=== PATIENT | female | born 1980 | race Caucasian/White ===

== ENCOUNTER 2017-08-28 03:40 | Inpatient (IN) | payer OTHER ==
[2017-08-28] VITALS (8 sets, daily range): BP systolic 117–134; BP diastolic 61–69; PULSE 46–54; RESP 18; TEMP 98.1; Ht 162.6 cm; Wt 75.2 kg
[~2017-08-28] VITALS: Ht 162.6 cm; Wt 75.2 kg
[~2017-08-28 03:40] MED LIST: ASPI-664 PO; ATOR20TA65 PO; IBUP400T22 PO; ISOS5TAB2 NGT; NITR0.4T32 SL
[2017-08-28 04:13] LABS: URINE BLOOD (Dip) POC Trace-intact (NEGATIVE)
[2017-08-28] MEDS ORDERED: LIDOCAINE/MYLANTA 40 ML BTL PO STA (04:17)
[2017-08-28] MEDS ORDERED: KETOROLAC 15 MG INJ IV STA (04:17)
[2017-08-28] MEDS ORDERED: BELLADONNA/PHENOBARBITAL TAB PO STA (04:17)
[2017-08-28] MEDS ORDERED: ONDANSETRON 4 MG INJ IV STA (04:17)
--- NOTE | 2017-08-28 04:23 | ERD ---
ER Documentation Chief Complaint Chief Complaint chest pain on and off x 3 days HPI 37-year-old woman triaged with chest pain as well as epigastric pain, she states that 2 pains are separate. Her chest pain is substernal and radiates down the left upper extremity, she states the last time this happened in January 2017 she suffered a myocardial infarction, patient also uses nitroglycerin intermittently throughout the week for chest pain and ran out 3 days ago. Her abdominal pain is nonexertional nonradiating. She denies shortness of breath, no fevers or chills, some nausea but no vomiting or diarrhea, no blood per rectum or melena, no weight loss. ROS All systems reviewed and are negative except as per history of present illness. Allergies Allergies: Coded Allergies: No Known Allergy (Unverified , 08/28/17) PMhx/Soc Hypertension, history of GA FmHx Family History: No diabetes Physical Exam Vitals Vital Signs Date Time Temp Pulse Resp B/P Pulse Ox O2 Delivery O2 Flow Rate FiO2 08/28/17 04:15 98.3 60 18 117/73 100 Room Air 08/28/17 03:56 98.3 54 20 153/77 100 Physical Exam GENERAL: Well-developed, well-nourished, well-hydrated, afebrile HEENT: Moist mucous membranes, pink conjunctiva, no cervical spine tenderness or step-off deformities, no goiter, no jaundice or icterus, extraocular movements intact without pain. No submandibular induration, and no pharyngeal erythema NEURO: Alert and oriented 3, cranial nerves II through XII intact bilaterally, pupils equal round reactive to light, no focal deficits or facial asymmetry, sensation intact distally Strength 5/5 in upper and lower extremities bilaterally CARDIAC: Bradycardic and regular, no murmurs rubs or gallops LUNGS: Clear bilaterally no wheezing crackles or stridor ABDOMEN: Soft nontender, no guarding, no rigidity, no rebound, no psoas sign no obturator sign. Normoactive bowel sounds SKIN: Warm and dry to touch, no abrasions, contusions, or hematomas, no lacerations, no ecchymosis, no target lesions, and without ulcers EXTREMITIES: No clubbing cyanosis or edema, calves are bilaterally symmetrical, no Homans sign, no popliteal cord sign. Distal pulses equal and bilateral PSYCH: Normal affect without agitation or irritability Result Diagram: 08/28/17 0420 08/28/17 0420 Results 24 hrs Laboratory Tests Test 08/28/17 04:10 08/28/17 04:11 08/28/17 04:20 Urine Color YELLOW Urine Clarity CLOUDY Urine pH 7.0 Urine Specific [place] 1.025 Urine Ketones TRACEmg/dL Urine Nitrite NEGATIVEmg/dL Urine Bilirubin NEGATIVEmg/dL Urine Urobilinogen NEGATIVEmg/dL Urine Leukocyte Esterase NEGATIVELeu/ul Urine Microscopic RBC 30/HPF Urine Microscopic WBC 11/HPF Urine Squamous Epithelial Cells MODERATE/HPF Urine Mucus MODERATE/HPF Urine Yeast (Budding) MODERATE/HPF Urine Hemoglobin NEGATIVEmg/dL Urine Glucose NEGATIVEmg/dL Urine Total Protein 1+mg/dl Bedside Urine pH (LAB) 8.5 Bedside Urine Protein (LAB) 1+ Bedside Urine Glucose (UA) Negative Bedside Urine Ketones (LAB) Trace Bedside Urine Blood Trace-intact Bedside Urine Nitrite (LAB) Negative Bedside Urine Leukocyte Esterase (L Negative White Blood Count 14.110^3/ul Red Blood Count 4.5310^6/ul Hemoglobin 11.5g/dl Hematocrit 35.5% Mean Corpuscular Volume 78.4fl Mean Corpuscular Hemoglobin 25.4pg Mean Corpuscular Hemoglobin Concent 32.4g/dl Red Cell Distribution Width 13.7% Platelet Count 6210^3/UL Mean Platelet Volume 8.9fl Neutrophils % 82.4% Lymphocytes % 11.3% Monocytes % 5.4% Eosinophils % 0.1% Basophils % 0.2% Nucleated Red Blood Cells % 0.0/100WBC Neutrophils # 11.710^3/ul Lymphocytes # 1.610^3/ul Monocytes # 0.810^3/ul Eosinophils # 0.010^3/ul Basophils # 0.010^3/ul Nucleated Red Blood Cells # 0.010^3/ul Prothrombin Time 12.1Sec Prothrombin Time Ratio 0.9 INR International Normalized Ratio 0.90 Sodium Level 143mmol/L Potassium Level 4.3mmol/L Chloride Level 99mmol/L Carbon Dioxide Level 35mmol/L Anion Gap 13 Blood Urea Nitrogen 12mg/dl Creatinine 0.53mg/dl Glucose Level 129mg/dl Calcium Level 9.4mg/dl Total Bilirubin 0.4mg/dl Direct Bilirubin 0.00mg/dl Indirect Bilirubin 0.4mg/dl Aspartate Amino Transf (AST/SGOT) 22IU/L Alanine Aminotransferase (ALT/SGPT) 38IU/L Alkaline Phosphatase 91IU/L Troponin I 0.022ng/ml Total Protein 7.4g/dl Albumin 3.9g/dl Globulin 3.50g/dl Albumin/Globulin Ratio 1.11 Lipase 42U/L Current Medications Medications (Trade) Dose Ordered Sig/Hipolito Route PRN Reason Start Time Stop Time Status Last Admin Dose Admin Ondansetron HCl (Zofran Inj) 4 mg ONCE STAT IV 08/28/17 04:17 08/28/17 04:19 DC 08/28/17 04:31 Miscellaneous Medication (Gi Cocktail (2)) 40 ml ONCE STAT PO 08/28/17 04:17 08/28/17 04:19 DC 08/28/17 04:32 Belladonna/ Phenobarbital () 2 tab ONCE STAT PO 08/28/17 04:17 08/28/17 04:19 DC 08/28/17 04:31 Ketorolac Tromethamine (Toradol) 15 mg ONCE STAT IV 08/28/17 04:17 08/28/17 04:19 DC 08/28/17 04:31 Lorazepam (Ativan) 0.5 mg ONCE ONCE IV 08/28/17 05:30 08/28/17 05:31 DC Procedures/[facility] IV line was established patient was placed on transaction manager rhythm strip revealed a sinus bradycardia at about 50 bpm with upright P and T waves. Patient was afebrile EKG performed, read by me revealed a sinus bradycardia 50 bpm, normal axis, narrow QRS complex, no concerning ST elevations or depressions noted. I administered 1 L LR IV 1, Toradol 15 mg IV, GI cocktail 30 cc p.o., and Zofran 4 mg IV with good response. One AP view of the chest performed, read by me reveals no acute infiltrates, normal mediastinum, sharp costophrenic and cardiac borders, no air under the diaphragm. Otherwise unremarkable chest x-ray. Urine analysis shows yeast and I administered fluconazole 200 mg p.o. 1 as well as lorazepam 0.5 mg p.o. for anxiety. For cardioprotective measures I administered aspirin 324 mg p.o. CBC reveals a leukocytosis, electrolytes are unremarkable, troponin is negative at 0.02. Liver function tests normal, lipase normal. Patient has a history of hypertension and CAD with recent GA. She is suffering chest pain similar to previous episode which resulted in myocardial infarction so she will be admitted to telemetry setting for continued medical management cardiology consultation. Departure Diagnosis: Primary Impression: Chest pain Chest pain type: unspecified Qualified Code: R07.9 - Chest pain, unspecified type Additional Impression: Yeast cystitis Condition: MANUEL Aguayo MD Aug 28, 2017 04:23
[2017-08-28 04:58] LABS: ABNORMAL IP MESSAGE 1; BASOPHILS % 0.2 % (0.0-2.0); EOSINOPHILS % 0.1 % (0.0-7.0); HEMATOCRIT 35.5 % (37.0-47.0); HEMOGLOBIN 11.5 g/dl (12.0-16.0); LYMPHOCYTES # 1.6 10^3/ul (0.8-2.9); LYMPHOCYTES % 11.3 % (15.0-51.0); MEAN CORPUSCULAR HEMOGLOBIN 25.4 pg (29.0-33.0); MEAN CORPUSCULAR HGB CONC 32.4 g/dl (32.0-37.0); MEAN CORPUSCULAR VOLUME 78.4 fl (82.0-101.0); MEAN PLATELET VOLUME 8.9 fl (7.4-10.4); MONOCYTE # 0.8 10^3/ul (0.3-0.9); MONOCYTES % 5.4 % (0.0-11.0); NEUTROPHIL # 11.7 10^3/ul (1.6-7.5); NEUTROPHILS % 82.4 % (39.0-77.0); PLATELET COUNT 62 10^3/UL (140-415); RED BLOOD COUNT 4.53 10^6/ul (4.20-5.40); RED CELL DISTRIBUTION WIDTH 13.7 % (11.5-14.5); WHITE BLOOD COUNT 14.1 10^3/ul (4.8-10.8)
[2017-08-28 05:00] LABS: POSITIVE DIFF @See below
[2017-08-28 05:11] LABS: ADD UMIC YES; UR ASCORBIC ACID 40 mg/dL (NEGATIVE); UR BILIRUBIN (Dip) NEGATIVE (NEGATIVE); UR BLOOD (Dip) NEGATIVE (NEGATIVE); UR BUDDING YEAST MODERATE /HPF (NONE SEEN); UR CLARITY CLOUDY (CLEAR); UR COLOR YELLOW (YELLOW); UR GLUCOSE (Dip) NEGATIVE (NEGATIVE); UR KETONES (Dip) TRACE mg/dL (NEGATIVE); UR LEUKOCYTE ESTERASE (Dip) NEGATIVE Leu/ul (NEGATIVE); UR MUCUS MODERATE /HPF (NONE SEEN); UR NITRITE (Dip) NEGATIVE (NEGATIVE); UR RBC 30 /HPF (0-5); UR SPECIFIC GRAVITY (Dip) 1.025 (1.003-1.030); UR SQUAMOUS EPITHELIAL CELL MODERATE /HPF (FEW); UR TOTAL PROTEIN (Dip) 1+ mg/dl (NEGATIVE); UR UROBILINOGEN (Dip) NEGATIVE (NEGATIVE)
[2017-08-28 05:15] LABS: ALBUMIN 3.9 g/dl (3.3-4.9); ALBUMIN/GLOBULIN RATIO 1.11; BILIRUBIN,INDIRECT 0.4 mg/dl (0-1.1); BILIRUBIN,TOTAL 0.4 mg/dl (0.2-1.3); CALCIUM 9.4 mg/dl (8.4-10.2); CREATININE 0.53 mg/dl (0.44-1.00); INR 0.9; POTASSIUM 4.3 mmol/L (3.5-5.1); PROTIME 12.1 Sec (12.2-14.2); PT RATIO 0.9; TOTAL PROTEIN 7.4 g/dl (6.1-8.1)
[2017-08-28] MEDS ORDERED: LORAZEPAM 2 MG INJ IV ONE (05:30)
[2017-08-28] MEDS ORDERED: HYDROmorphONE 1 MG/ML SYG IV STA (05:52)
--- NOTE | 2017-08-28 05:52 | RADRPT ---
PROCEDURE: XR Chest. CLINICAL INDICATION: Chest pain. TECHNIQUE: AP Portable chest. COMPARISON: No pertinent prior examinations were submitted for comparison. FINDINGS: The cardiomediastinal silhouette is normal. The aorta is normal. No focal consolidation, pleural eff usion or pneumothorax is seen. The osseous structures are intact. IMPRESSION: No radiographic evidence of acute cardiopulmonary disease. Physician Trice Date Time Electronically viewed and signed by Jose M Duong Physician on 08/28/2017 05:52 RYLEY/
[2017-08-28] MEDS ORDERED: FLUCONAZOLE 200 MG TAB PO ONE (06:00)
[2017-08-28] MEDS ORDERED: ASPIRIN 81 MG TAB PO ONE (06:00)
[2017-08-28] MEDS ORDERED: ONDANSETRON 4 MG INJ IV PRN (06:00)
[2017-08-28] MEDS ORDERED: morphine 2 MG INJ IV PRN ×2 (06:00→10:30)
[2017-08-28] MEDS ORDERED: NACL 0.9% 3 ML SYG IV SCH (06:00)
[2017-08-28] MEDS ORDERED: ACETAMINOPHEN 325 MG TAB PO PRN (06:00)
[2017-08-28] MEDS ORDERED: ZOLPIDEM 5 MG TAB PO PRN (06:00)
[2017-08-28] MEDS: PANTOPRAZOLE (EC) 40 MG TAB PO SCH ×2 (06:03→11:33)
[2017-08-28 07:40] LABS: CK-MB 0.44 ng/ml (0.0-2.4); TROPONIN-I 0.035 ng/ml (0.00-0.12)
[2017-08-28] MEDS ORDERED: ENOXAPARIN 40 MG/0.4 ML SYG SC SCH (09:00)
[2017-08-28] MEDS ORDERED: NITROGLYCERIN (SL) 0.4 MG TAB SL PRN ×2 (10:30→19:30)
[2017-08-28 11:35] LABS: ABNORMAL IP MESSAGE 1; BASOPHILS % 0.1 % (0.0-2.0); EOSINOPHILS % 0.1 % (0.0-7.0); HEMATOCRIT 32.7 % (37.0-47.0); HEMOGLOBIN 10.8 g/dl (12.0-16.0); LYMPHOCYTES # 1.9 10^3/ul (0.8-2.9); LYMPHOCYTES % 13.3 % (15.0-51.0); MEAN CORPUSCULAR HEMOGLOBIN 25.9 pg (29.0-33.0); MEAN CORPUSCULAR VOLUME 78.4 fl (82.0-101.0); MEAN PLATELET VOLUME 8.7 fl (7.4-10.4); MONOCYTE # 0.9 10^3/ul (0.3-0.9); MONOCYTES % 6.4 % (0.0-11.0); NEUTROPHIL # 11.3 10^3/ul (1.6-7.5); NEUTROPHILS % 79.5 % (39.0-77.0); RED BLOOD COUNT 4.17 10^6/ul (4.20-5.40); RED CELL DISTRIBUTION WIDTH 14.2 % (11.5-14.5); WHITE BLOOD COUNT 14.1 10^3/ul (4.8-10.8)
[2017-08-28 11:37] LABS: PLATELET COUNT 43 10^3/UL (140-415); POSITIVE DIFF @See below
[2017-08-28 11:54] LABS: INR 0.92; PARTIAL THROMBOPLASTIN TIME 25.9 Sec (25.0-35.0); PROTIME 12.4 Sec (12.2-14.2)
[2017-08-28 12:03] LABS: CK-MB 0.64 ng/ml (0.0-2.4); TROPONIN-I 0.049 ng/ml (0.00-0.12)
--- NOTE | 2017-08-28 18:39 | QN ---
Documentation Comment [id number] OPAL SLAUGHTER MD Aug 28, 2017 18:39
[2017-08-28 20:42] LABS: HAAIG REFLEX REFLEX FILED
[2017-08-28] MEDS ORDERED: ISOSORBIDE DINITRATE 5 MG TAB NGT SCH (21:00)
--- NOTE | 2017-08-28 21:05 | HP ---
DATE OF ADMISSION: 08/28/2017 HISTORY OF PRESENT ILLNESS: Patient is a 37-year-old female. Presented to this hospital with chest pain, dyspepsia. The patient's EKG done in the ER shows rate of 50 with T-wave inversion in lead III and aVF, and patient has bradycardia, rate of [address]-T changes also noted. The patient's WBC 14.1, hematocrit 32.7, platelet count of 43. The patient's troponin 0.128, earlier 0.049. Patient's doctor, Dr. Lee has been called to see this patient in consultation. The patient had chest x-ray done, shows no radiographic evidence of acute cardiopulmonary disease. PAST MEDICAL HISTORY: Positive for leukocytosis. The patient has a wide complex tachycardia. The patient has dyslipidemia. The patient has history of coronary angiogram in the past. ALLERGY HISTORY: NEGATIVE. FAMILY HISTORY: Negative. SOCIAL HISTORY: Negative. HOME MEDICATIONS: 1. Aspirin. 2. Atorvastatin. 3. Ibuprofen. 4. Isosorbide. 5. Nitroglycerin. REVIEW OF SYSTEMS: HEENT: Unremarkable. RESPIRATORY: Unremarkable. CARDIOVASCULAR: Complaining of chest pain, and also dyspepsia. ABDOMEN: Unremarkable. No hematemesis, melena. EXTREMITIES: Unremarkable. CENTRAL NERVOUS SYSTEM: Unremarkable. PHYSICAL EXAMINATION: GENERAL: The patient is awake and alert. VITAL SIGNS: Pulse 52, blood pressure 117/61. HEAD: Atraumatic, normocephalic. Pupils equal, reactive to light. NECK: Supple. No JVD. LUNGS: Clear. CARDIOVASCULAR: S1, S2 are normal. ABDOMEN: Soft, nontender. Bowel sounds present. No palpable mass or hepatosplenomegaly. No guarding, rebound tenderness. EXTREMITIES: There is no cyanosis, clubbing or edema. CENTRAL NERVOUS SYSTEM: The patient is awake, alert with no focal deficit. LABORATORY DATA: Previously, the patient had a WBC of 10.8, hematocrit 35.3, platelet count of 163. The patient had rheumatoid factor screen positive, rheumatoid factor titer 1:28. CARRIE positive. CARRIE titer 1:320. Patient, now, noted to have WBC of 14.1, hematocrit 32.7, platelet count of 43. Chest x-ray: No radiographic evidence of acute cardiopulmonary disease. IMPRESSION: Other diagnoses include: 1. Patient has a non stemi. 2. Pancytopenia, rule out underlying connective tissue disorder. 3. Rule out pericarditis. 4. History of CARRIE positive and history of rheumatoid factor positive. PLAN: To obtain echo, continue oxygen,consult_ outside operator. The patient will have lupus workup restarted, and patient's home medications will be reviewed and continued. Orders were done. Dictated By: OPAL SLAUGHTER MD BS/NTS Conf#: [id number] DID#: [id number] CC: LIBAN RIVERA;*Artie* MTDD
[2017-08-28 21:18] LABS: COMPLEMENT C3 116 mg/dl (88-165); COMPLEMENT C4 28 mg/dl (14-44)
[2017-08-28 21:26] LABS: C-REACTIVE PROTEIN 1.3 mg/dl (0.0-0.9)
[2017-08-28] MEDS: ATORVASTATIN 20 MG TAB PO SCH (21:51)
[2017-08-28 22:08] LABS: HEPATITIS B CORE ANTIBODY NEGATIVE (NEGATIVE)
--- NOTE | 2017-08-28 22:15 | CONS ---
DATE OF ADMISSION: 08/28/2017 DATE OF CONSULTATION: 08/28/2017 CARDIOLOGY CONSULTATION REASON FOR CONSULTATION: Chest pain, assess for acute coronary syndrome. REQUESTING PHYSICIAN: Dr. Attila Slaughter HISTORY OF PRESENT ILLNESS: Ms. Burk is a 37-year-old female with a history of vasospastic angin a per chart biopsy in a patient who was evaluated here in June 2017. Per note, she had a n outpatient catheterization at [facility] and the index here revealing no significant disease, but vasospastic disease, vasospasm, dyslipidemia, obesity, who presents with complaints of substernal ch est pain, described as a pressure-like sensation, occurring at rest, lasting 1 to 2 minutes with rad iation to her left arm. Upon arrival, temperature 98.3, pulse 54, blood pressure 153/77, respiratio ns 20, satting 100%. The patient's labs revealed a white blood cell count of 14.1, hemoglobin 11.5, platelet count of 62. Sodium 143, potassium 4.3, creatinine of 0.53, BUN 12. Troponin negative. INR 0.92. UA borderline positive. The patient underwent a chest x-ray revealing no radiographic ev idence of acute cardiopulmonary disease. The patient underwent an ECG revealing marked sinus bradyc ardia, rate of 48 with normal axis and inferior and lateral T-wave inversions to biphasic T-wave abn ormalities. Patient subsequently admitted to the floor and since admit to the floor, had 2 further troponins and it was followed by 2 positive troponins, mildly, at 0.128 and 0.400. Given these find ings, cardiology consult was requested. PAST MEDICAL HISTORY: As above in HPI. MEDICATIONS CURRENTLY IN HOSPITAL: 1. Aspirin 81 mg daily. 2. Lipitor 20 mg at bedtime. 3. Isordil 5 mg p.o. t.i.d. 4. Sublingual nitroglycerin p.r.n. 5. Zofran p.r.n. 6. Tylenol p.r.n. 7. Ambien p.r.n. 8. Protonix p.r.n. 9. Morphine p.r.n. ALLERGIES: NO KNOWN DRUG ALLERGIES. SOCIAL HISTORY: No tobacco, ETOH, illicit drug use. FAMILY HISTORY: No history of sudden cardiac or early CAD. REVIEW OF SYSTEMS: As above in HPI. CONSTITUTIONAL: No fevers, chills. PULMONARY: No current shortness of breath. CARDIOVASCULAR: Intermittent chest pain. GASTROINTESTINAL: No vomiting. GENITOURINARY: No hematuria. MUSCULOSKELETAL: Degenerative joint disease. PSYCHIATRIC: The patient denies depression. NEUROLOGIC: No documented history of CVA. PHYSICAL EXAMINATION: VITAL SIGNS: Temperature 99.3, blood pressure most recently 123/69, pulse 65, respirations 18, satt ing 99%. GENERAL: The patient is alert, awake, in no acute distress. NECK: JVP approximately 8 to 9 cm of water. CHEST: Fair air movement throughout. HEART: Bradycardic, regular rhythm. Normal S1, S2, I/ systolic murmur, nondisplaced PMI. ABDOMEN: Positive bowel sounds, soft. EXTREMITIES: No edema, 1+ pulses bilaterally, posterior tibial. LABORATORY DATA: As above in HPI, with most recent from today, troponin mildly positive after being negative x3 at 0.40. White blood cell count 14.1, hemoglobin 10.8, platelet count of 43. IMAGING STUDIES: As above in HPI. No further imaging studies for my review at this time. ECG: As above in HPI. No further electrocardiograms for my review at this time. IMPRESSION: 1. Positive troponin in the setting of a patient that is thought to have severe vasospastic disease , which definitely could cause positive troponins in the setting of severe vasospasm. 2. Chest pain. 3. Vasospastic angina per history. 4. Dyslipidemia, on statin. 5. Bradycardia. 6. Abnormal electrocardiogram with inferior and lateral T-wave abnormalities. RECOMMENDATIONS: 1. At this time, would maintain patient on telemetry monitoring to follow rhythm and rate control c losely. 2. Continue the patient's aspirin at this time, in the setting of positive troponins. 3. Continue to trend the patient's cardiac enzymes, assess for any significant ongoing damage. 4. The patient is status post recent 2D echo 06/2017, at that time revealing a preserved EF, thus w e will continue the patient's low-dose Isordil with attempt to slowly increase and possibly add a lo w-dose Norvasc to prevent any vasospasm, if this is truly the disease that is happening, and we will attempt to obtain the patient's cath report from outside hospital and if not, we will likely place patient in for a Lexiscan stress test to assess significance of positive troponins, which as stated earlier, could be possibly due to vasospastic disease. We will rule out any obstructive coronary ar esau disease in this young lady. Additionally, check a fasting lipid panel and adjust the patient's statin therapy as necessary. Thank you for allowing me to take part in the care of this patient. I will continue to follow along very closely with you with recommendations to be made as the patient progresses through her [facility] clinical course. Dictated By: RHIANNA CASTAÑEDA/MANUEL Conf#: [id number] DID#: [id number] CC: LIBAN RIVERA; ATTILA SLAUGHTER MD;*[facility]*
--- NOTE | 2017-08-28 22:23 | RADRPT ---
Echocardiogram Report Patient Name: DEVORA SCHAEFER Gender: Female Date: 1980 Study Date: 28-Aug-2017 High Wire Artist: Manuel Woods [facility] Location: [facility] Ref. Physician: LIBAN RIVERA Quality: Adequate Procedures: Transthoracic echocardiogram with complete 2D, M-Mode, and doppler examination. Indications: Chest Pain. 2D/M Mode Doppler Measurement Value Normal Ranges Measurement Value Normal Ranges LVIDd 2D 4.4 3.5 - 5.6 cm AV Peak Rich 1.6 m/sec LVIDs 2D 2.9 2.1 - 4.1 cm AV Peak PG 9.7 mmHg LVPWd 2D 1.2 0.6 - 1.1 cm LVOT Peak Rich 1.1 m/sec IVSd 2D 1.2 0.6 - 1.1 cm LVOT Peak PG 4.8 mmHg AoR Diam 2D 2.3 2.0 - 3.7 cm MV E Peak Rich 1.0 m/sec EDV 2D 88.5 cm3 MV A Peak Rich 0.5 m/sec ESV 2D 23.9 cm3 MV E/A 2.0 LA Dimen 2D 4.0 2.3 - 4.0 cm MV Decel Time 199 msec MV Decel Esmeralda 5 MV E/A 2.0 TR Peak Rich 2.9 m/sec TR Peak PG 33.0 mmHg RVSP 36.0 mmHg Findings Left Ventricle: Normal left ventricular systolic function. Normal left ventricular cavity size. Left ventricular wall thickness upper limits of normal. Ejection fraction is visually estimated at 55 %. Tissue Doppler/Mitral Doppler indices are consistent with pseudonormalization with mildly elevated left atrial pressure (Stage II diastolic dysfunction). Right Ventricle: Normal right ventricular size. Normal right ventricular systolic function. Left Atrium: The left atrium is normal in size. Right Atrium: The right atrium is normal in size. Mitral Valve: Normal appearance of the mitral valve. Trace mitral regurgitation. Aortic Valve: Normal appearance of the aortic valve. No significant aortic stenosis or insufficiency. Tricuspid Valve: Normal appearance of the tricuspid valve. Estimated peak PA systolic pressure 36 mmHg. There is mild tricuspid regurgitation. Pulmonic Valve: Pulmonic valve not well visualized. Pericardium: Normal pericardium with no significant pericardial effusion. Aorta: Normal aortic root. IVC: Normal size and normal respiratory collapse consistent with normal right atrial pressure. Conclusions 1.Normal left ventricular systolic function. Normal left ventricular cavity size. Left ventricular wall thickness upper limits of normal. Ejection fraction is visually estimated at 55 %. Tissue Doppler/Mitral Doppler indices are consistent with pseudonormalization with mildly elevated left atrial pressure (Stage II diastolic dysfunction). 2.Normal appearance of the mitral valve. Trace mitral regurgitation. 3.Normal appearance of the tricuspid valve. Estimated peak PA systolic pressure 36 mmHg. There is mild tricuspid regurgitation. Electronically Signed By: Acosta eLe 28-Aug-2017 22:23:08 -0800 Patient Name: DEVORA SCHAEFER Study Date: 28-Aug-2017 [id number]
[2017-08-29] VITALS (12 sets, daily range): BP systolic 97–103; BP diastolic 55–60; PULSE 40–54; RESP 16–20
[2017-08-29 07:15] LABS: ABNORMAL IP MESSAGE 1; HEMOGLOBIN 10.6 g/dl (12.0-16.0); MEAN CORPUSCULAR HGB CONC 33.1 g/dl (32.0-37.0); MEAN CORPUSCULAR VOLUME 78.6 fl (82.0-101.0); RED BLOOD COUNT 4.07 10^6/ul (4.20-5.40); RED CELL DISTRIBUTION WIDTH 14.7 % (11.5-14.5)
[2017-08-29 07:25] LABS: PLATELET COUNT 40 10^3/UL (140-415); POSITIVE DIFF @See below
[2017-08-29 07:41] LABS: CHOL/HDL RATIO 3.1 RATIO
[2017-08-29 07:48] LABS: CK-MB 2.49 ng/ml (0.0-2.4)
[2017-08-29 07:49] LABS: TROPONIN-I 0.44 ng/ml (0.00-0.12)
[2017-08-29] MEDS: AMLODIPINE 2.5 MG TAB PO SCH (08:21)
[2017-08-29 08:46] LABS: ANISOCYTOSIS 2+ (0-0); MICROCYTOSIS 2+ (0-0); MONOCYTES % (M) 8 % (0-11); PLATELET ESTIMATE SIG DECREASED; POIKILOCYTOSIS 1+ (0-0); POLYCHROMASIA 3+ (0-0); REACTIVE LYMPHOCYTES% (M) 1 % (0-0)
--- NOTE | 2017-08-29 08:50 | CONS ---
Date/Time of Note Date/Time of Note DATE: 08/29/17 TIME: 08:49 Assessment/Plan Assessment/Plan Additional Assessment/Plan 1. Positive troponin in the setting of a patient that is thought to have severe vasospastic disease, which definitely could cause positive troponins in the setting of severe vasospasm- stress test scheduled today 2. Chest pain- resolved. 3. Vasospastic angina per history- Rx after test. 4. Dyslipidemia, on statin- treat to goal. 5. Bradycardia- rate controlled - no indictaion for pacer. 6. Abnormal electrocardiogram with inferior and lateral T-wave abnormalities. Consultation Date/Type/Reason Admit Date/Time Aug 28, 2017 at 05:43 Initial Consult Date 24 HR Interval Summary Free Text/Dictation NO acute events - BP in good range - no CP now, will monitor closely. ROS: No fever, no chills, no nausea, no vomiting, no diarrhea/constipation No recent weight changes No chest pain, no PND, no orthopnea No dizziness, blurred vision No thirst, no heat or cold intolerance Exam/Review of Systems Vital Signs Vitals Vital Signs Date Time Temp Pulse Resp B/P Pulse Ox O2 Delivery O2 Flow Rate FiO2 08/29/17 08:12 45 08/29/17 07:38 98.4 20 98/60 98 08/28/17 08:56 Room Air Intake and Output 08/28/17 08/28/17 08/29/17 14:59 22:59 06:59 Intake Total 720 ml Balance 720 ml Exam General: WN/WD/NAD, AOx 3 HEENT: Unicetric/atraumatic/EOMI (follows commands) NECK: JVD elevated, no thyromegaly Lymph: no lymphadenopathy HEART: regular with no S3, II/ systolic murmur at apex LUNGS: Coarse sounds ABD: soft, NT, ND, +BS : Intact Neuro: non focal SKIN: chronic changes EXT: trace edema Results Result Diagram: 08/29/17 0652 08/28/17 0420 Results 24 hrs Laboratory Tests Test 08/28/17 10:52 08/28/17 10:54 08/28/17 13:20 08/28/17 18:20 Prothrombin Time 12.4 Prothrombin Time Ratio 1.0 INR International Normalized Ratio 0.92 Activated Partial Thromboplast Time 25.9 Creatine Kinase 53 Creatine Kinase Index 1.2 Creatinine Kinase MB (Mass) 0.64 Troponin I 0.049 0.128 *H 0.400 *H White Blood Count 14.1 H Red Blood Count 4.17 L Hemoglobin 10.8 L Hematocrit 32.7 L Mean Corpuscular Volume 78.4 L Mean Corpuscular Hemoglobin 25.9 L Mean Corpuscular Hemoglobin Concent 33.0 Red Cell Distribution Width 14.2 Platelet Count 43 #L Mean Platelet Volume 8.7 Neutrophils % 79.5 H Lymphocytes % 13.3 L Monocytes % 6.4 Eosinophils % 0.1 Basophils % 0.1 Nucleated Red Blood Cells % 0.0 Neutrophils # 11.3 H Lymphocytes # 1.9 Monocytes # 0.9 Eosinophils # 0.0 Basophils # 0.0 Nucleated Red Blood Cells # 0.0 Test 08/28/17 20:34 08/28/17 20:35 08/29/17 06:52 Hepatitis B Surface Antigen NEGATIVE Hepatitis B Core Total Antibody NEGATIVE Hepatitis C Antibody NEGATIVE Erythrocyte Sedimentation Rate 23 H C-Reactive Protein 1.3 H Complement C3 116 Complement C4 28 HIV (1&2) Antibody NEGATIVE White Blood Count 13.0 H Red Blood Count 4.07 L Hemoglobin 10.6 L Hematocrit 32.0 L Mean Corpuscular Volume 78.6 L Mean Corpuscular Hemoglobin 26.0 L Mean Corpuscular Hemoglobin Concent 33.1 Red Cell Distribution Width 14.7 H Platelet Count 40 L Mean Platelet Volume 10.0 Neutrophils % Segmented Neutrophils % (Manual) 58 Lymphocytes % Lymphocytes % (Manual) 33 Reactive Lymphocytes % (Manual) 1 H Monocytes % Monocytes % (Manual) 8 Eosinophils % Basophils % Nucleated Red Blood Cells % 0.0 Neutrophils # Absolute Lymphocytes (Manual) 4.2 H Lymphocytes # Reactive Lymphocytes # 0.1 H Monocytes # Absolute Monocytes (Manual) 1.0 H Eosinophils # Basophils # Nucleated Red Blood Cells # Platelet Estimate SIG DECREASED Polychromasia 3+ Poikilocytosis 1+ Anisocytosis 2+ Microcytosis 2+ Creatine Kinase 58 Creatine Kinase Index 4.3 Creatinine Kinase MB (Mass) 2.49 H Troponin I 0.440 *H Triglycerides Level 131 Cholesterol Level 136 LDL Cholesterol, Calculated 67 HDL Cholesterol 43 Cholesterol/HDL Ratio 3.1 Medications Medications Current Medications Ondansetron HCl (Zofran Inj) 4 mg Q6H PRN IV NAUSEA AND/OR VOMITING; Start at 06:00 Acetaminophen (Tylenol Tab) 650 mg Q6H PRN PO PAIN LEVEL 1-3 OR FEVER; Start 08/28/17 at 06:00 Zolpidem Tartrate (Ambien) 5 mg QHS PRN PO SLEEP; Start 08/28/17 at 06:00 Pantoprazole (Protonix Tab) 40 mg DAILY@06 PO Last administered on 08/28/17 11:33; Admin Dose 40 MG; Start 08/28/17 at 06:00 Aspirin (Aspirin) 81 mg DAILY PO ; Start 08/30/17 at 09:00 Morphine Sulfate (morphine) 2 mg Q2H PRN IV PAIN LEVEL 4-6; Start 08/28/17 at 10:30 Atorvastatin Calcium (Lipitor) 20 mg HS PO Last administered on 08/28/17 21: 51; Admin Dose 20 MG; Start 08/28/17 at 21:00 Nitroglycerin (Nitroglycerin (Sl Tab) 0.4 Mg) 0.4 tab [id number] PRN SL CHEST PAIN; Start 08/28/17 at 19:30 Amlodipine Besylate (Norvasc) 2.5 mg DAILY PO ; Start 08/29/17 at 09:00 Isosorbide Dinitrate (Isordil) 5 mg TID PO ; Start 08/29/17 at 09:00 LUIS ALMODOVAR MD Aug 29, 2017 08:50
[2017-08-29] MEDS ORDERED: ASPIRIN 81 MG TAB PO SCH (09:00)
[2017-08-29] MEDS ORDERED: REGADENOSON 0.4 MG/5 ML SYG ONE (10:43)
[2017-08-29] MEDS: ISOSORBIDE DINITRATE 5 MG TAB PO SCH ×3 (12:00→21:00)
--- NOTE | 2017-08-29 12:51 | RADRPT ---
PROCEDURE: Lexiscan myocardial perfusion study CLINICAL INDICATION: 37 -year-old patient complaining of chest pain. TECHNIQUE: Lexiscan 0.4 mg intravenously separate acquisition gated myocardial perfusion SPECT usi ng Tc 99m Myoview 30.3 mCi intravenously at stress and Tc-99m Myoview, 9.9 mCi intravenously at rest was performed using the rest/stress sequence. Poststress Myoview SPECT images were obtained in the supine position. COMPARISON: No prior studies. FINDINGS: Perfusion images reveal no evidence of perfusion defects. Lexiscan post stress gated SPECT images demonstrate no wall motion abnormalities. IMPRESSION: 1. No evidence of perfusion defects. 2. No wall motion abnormalities. 3. The left ventricle ejection fraction at stress is 56%. A call report was made to Dr. Liriano at 12:50 p.m. on August 29, 2017 RPTAT: HH .Karen Byrd MD, Date Time Electronically viewed and signed by .Karen Byrd MD, on 08/29/2017 12:51 .L/
--- NOTE | 2017-08-29 13:38 | ECORPT ---
DATE OF SERVICE: PROCEDURE: Lexiscan Cardiolite stress test REFERRING PHYSICIAN: Dr. Reid REASON FOR EVALUATION: Chest pain. DESCRIPTION OF TEST: The patient was brought in to the heart station, and had successful Lexiscan i njection. Blood pressure was 105/53. She developed some tachycardia, but no ischemia on EKG. The imaging portion is dictated separately. Dictated By: LUIS ALMODOVAR MD ML/NTS Conf#: [id number] DID#: [id number] CC: LIBAN REID;*End[facility]*
[2017-08-29 13:55] LABS: PROTEIN/CREAT RATIO 0.08 RATIO
--- NOTE | 2017-08-29 14:26 | RADRPT ---
Vent Rate: 50 bpm RR Interval: 0 msec CA Interval: 116 msec QRS Duration: 96 msec QT Interval: 450 msec QTC Interval: 410 msec P-R-T Rescue: 27 - 33 - 23 degrees Sinus bradycardia Otherwise normal ECG Electronically Signed By: Bebeto Davey [id number]
[2017-08-29 15:18] LABS: RHEUMATOID FACTOR POSITIVE (NEGATIVE)
--- NOTE | 2017-08-29 19:41 | PN ---
Date/Time of Note Date/Time of Note DATE: 08/29/17 TIME: 19:39 Assessment/Plan VTE Prophylaxis VTE Prophylaxis Intervention: other Lines/Catheters [facility] Saline Lock Urinary Cath still in place: No Assessment/Plan Chief Complaint/Hosp Course IMPRESSION: Other diagnoses include: 1. Patient has a positive troponin w vasospastic dis 2. , rule out underlying connective tissue disorder. 3. Rule out pericarditis. 4. History of CARRIE positive and history of rheumatoid factor positive. plan per cardio and dr santiago to see Problems: Subjective 24 Hr Interval Summary ENT: no complaints Respiratory: no complaints Cardiovascular: No chest pain Gastrointestinal: no complaints Genitourinary: no complaints Musculoskeletal: bone/joint pain (+) Skin: no complaints Exam/Review of Systems Vital Signs Vitals Vital Signs Date Time Temp Pulse Resp B/P Pulse Ox O2 Delivery O2 Flow Rate FiO2 08/29/17 16:12 50 08/29/17 15:43 98.9 20 97/55 100 08/28/17 08:56 Room Air Intake and Output 08/28/17 08/28/17 08/29/17 15:00 23:00 07:00 Intake Total 720 ml Balance 720 ml Exam Neck: supple Respiratory: clear to auscultation Cardiovascular: regular rate and rhythm Gastrointestinal: soft Musculoskeletal: nl extremities to inspection Extremities: normal pulses Neurological: FACING GRINDER II-XII intact Results Result Diagram: 08/29/17 0652 08/28/17 0420 Results 24 hrs Laboratory Tests Test 08/28/17 20:34 08/28/17 20:35 08/29/17 06:52 08/29/17 12:37 Rheumatoid Factor Screen POSITIVE H Rheumatoid Factor Titer 1:2 H Hepatitis B Surface Antigen NEGATIVE Hepatitis B Core Total Antibody NEGATIVE Hepatitis C Antibody NEGATIVE Erythrocyte Sedimentation Rate 23 H C-Reactive Protein 1.3 H Complement C3 116 Complement C4 28 HIV (1&2) Antibody NEGATIVE White Blood Count 13.0 H Red Blood Count 4.07 L Hemoglobin 10.6 L Hematocrit 32.0 L Mean Corpuscular Volume 78.6 L Mean Corpuscular Hemoglobin 26.0 L Mean Corpuscular Hemoglobin Concent 33.1 Red Cell Distribution Width 14.7 H Platelet Count 40 L Mean Platelet Volume 10.0 Neutrophils % Segmented Neutrophils % (Manual) 58 Lymphocytes % Lymphocytes % (Manual) 33 Reactive Lymphocytes % (Manual) 1 H Monocytes % Monocytes % (Manual) 8 Eosinophils % Basophils % Nucleated Red Blood Cells % 0.0 Neutrophils # Absolute Lymphocytes (Manual) 4.2 H Lymphocytes # Reactive Lymphocytes # 0.1 H Monocytes # Absolute Monocytes (Manual) 1.0 H Eosinophils # Basophils # Nucleated Red Blood Cells # Platelet Estimate SIG DECREASED Polychromasia 3+ Poikilocytosis 1+ Anisocytosis 2+ Microcytosis 2+ Creatine Kinase 58 Creatine Kinase Index 4.3 Creatinine Kinase MB (Mass) 2.49 H Troponin I 0.440 *H Triglycerides Level 131 Cholesterol Level 136 LDL Cholesterol, Calculated 67 HDL Cholesterol 43 Cholesterol/HDL Ratio 3.1 Urine Random Creatinine 117.57 Urine Protein/Creatinine Ratio 0.08 Urine Total Protein 10.0 Medications Medications Current Medications Ondansetron HCl (Zofran Inj) 4 mg Q6H PRN IV NAUSEA AND/OR VOMITING; Start at 06:00 Acetaminophen (Tylenol Tab) 650 mg Q6H PRN PO PAIN LEVEL 1-3 OR FEVER; Start 08/28/17 at 06:00 Zolpidem Tartrate (Ambien) 5 mg QHS PRN PO SLEEP; Start 08/28/17 at 06:00 Pantoprazole (Protonix Tab) 40 mg DAILY@06 PO Last administered on 08/28/17 11:33; Admin Dose 40 MG; Start 08/28/17 at 06:00 Aspirin (Aspirin) 81 mg DAILY PO ; Start 08/30/17 at 09:00 Morphine Sulfate (morphine) 2 mg Q2H PRN IV PAIN LEVEL 4-6; Start 08/28/17 at 10:30 Atorvastatin Calcium (Lipitor) 20 mg HS PO Last administered on 08/28/17 21: 51; Admin Dose 20 MG; Start 08/28/17 at 21:00 Nitroglycerin (Nitroglycerin (Sl Tab) 0.4 Mg) 0.4 tab [id number] PRN SL CHEST PAIN; Start 08/28/17 at 19:30 Amlodipine Besylate (Norvasc) 2.5 mg DAILY PO ; Start 08/29/17 at 09:00 Isosorbide Dinitrate (Isordil) 5 mg TID PO Last administered on 08/29/17 12: 00; Admin Dose 5 MG; Start 08/29/17 at 09:00 OPAL SLAUGHTER MD Aug 29, 2017 19:41
[2017-08-29] MEDS: ATORVASTATIN 20 MG TAB PO SCH (21:24)
[2017-08-30] VITALS (12 sets, daily range): BP systolic 91–110; BP diastolic 51–60; PULSE 44–58; RESP 17–19
[2017-08-30] MEDS: PANTOPRAZOLE (EC) 40 MG TAB PO SCH (05:41)
[2017-08-30 07:14] LABS: ABNORMAL IP MESSAGE 1; BASOPHILS % 0.2 % (0.0-2.0); EOSINOPHILS # 0.1 10^3/ul (0.0-0.5); EOSINOPHILS % 0.5 % (0.0-7.0); HEMATOCRIT 31.7 % (37.0-47.0); HEMOGLOBIN 10.3 g/dl (12.0-16.0); LYMPHOCYTES # 3.8 10^3/ul (0.8-2.9); MEAN CORPUSCULAR HEMOGLOBIN 25.8 pg (29.0-33.0); MEAN CORPUSCULAR HGB CONC 32.5 g/dl (32.0-37.0); MEAN CORPUSCULAR VOLUME 79.3 fl (82.0-101.0); MEAN PLATELET VOLUME 10.8 fl (7.4-10.4); MONOCYTE # 1.3 10^3/ul (0.3-0.9); NEUTROPHIL # 8.9 10^3/ul (1.6-7.5); NEUTROPHILS % 62.7 % (39.0-77.0); PLATELET COUNT 64 10^3/UL (140-415); RED CELL DISTRIBUTION WIDTH 14.7 % (11.5-14.5); WHITE BLOOD COUNT 14.2 10^3/ul (4.8-10.8)
[2017-08-30 07:22] LABS: POSITIVE DIFF @See below
--- NOTE | 2017-08-30 08:18 | CONS ---
Date/Time of Note Date/Time of Note DATE: 08/30/17 TIME: 08:09 Assessment/Plan Assessment/Plan Chief Complaint/Hosp Course 37 yo wtih #Chest pain #Leukocytosis #Thrombcytopenia #Rheumatoid ARthritis -Th most likely reason for patients leukocytosis and thrombocytopenia is her underlying rheumatoid arthritis especially since she has known about this at least since last January when she was admitted to [facility]. Still given her young age we'll need to rule out underlying bone marrow dyscrasia such as leukemia or myeloproliferative disorder. We will order a bone marrow biopsy at this time and send the bone marrow biopsy for flow cytometry, GEOFF 2 mutation analysis, BCR ABL mutation analysis -Chest pain is likely secondary to vasospasm. Continue recommendations per cardiology including aspirin and statin -Pt should be referred to out patient magento developer to initiate treatment if necessary of her underlying disease process A total of 40 minutes of face to face time was spent speaking with the patient, of which greater than 50% was spent in counseling and coordination of care and the detailed question and answer session. Problems: Consultation Date/Type/Reason Admit Date/Time Aug 28, 2017 at 05:43 Date of Consultation: Aug 30, 2017 Type of Consultation: Hematology Reason for Consultation thrombocytopenia Referring Provider: OPAL SLAUGHTER of Present Illness Ms Burk is a 37-year-old female with Rheumatoid Arthritis, who initially presented to this hospital with chest pain, dyspepsia on aug 28. Pt is currently being treated for an NSTEMI since her troponin was found to be elevated. Per cardiology pt may have severe vasospastic disease. Pt is currently being followed by cardiology and is on ASA. Of note pt had an angiogram in January for similar complaints. Since admission pt has been noted to have a leukocytosis with a WBC 14.1, hematocrit 32.7, platelet count of 43. Pt has no sign of infection to explain the leukocytosis but she does have a history of Rheumatoid arthritis as previously mentioned. Constitutional: no complaints Eyes: no complaints ENT: no complaints Respiratory: no complaints Cardiovascular: no complaints Gastrointestinal: no complaints Musculoskeletal: back pain, bone/joint pain Skin: no complaints Neurologic: no complaints Endocrine: no complaints Past Medical History Rheumatoid Arthritis history of coronary vasospasm Past Surgical History Past Surgical Hx: no surgical history Family History Significant Family History: no pertinent family hx Social History Alcohol Use: none Smoking Status: Current every day smoker Drug Use: none Exam/Review of Systems Vital Signs Vitals Vital Signs Date Time Temp Pulse Resp B/P Pulse Ox O2 Delivery O2 Flow Rate FiO2 08/30/17 08:06 98.4 52 17 110/55 99 08/28/17 08:56 Room Air Intake and Output 08/29/17 08/29/17 08/30/17 15:00 23:00 07:00 Intake Total 880 ml 600 ml Balance 880 ml 600 ml Exam Constitutional: alert, oriented Psych: no complaints Head: normocephalic Eyes: nl conjunctiva ENMT: nl external ears & nose Neck: non-tender, supple Respiratory: clear to auscultation, normal air movement Cardiovascular: regular rate and rhythm Gastrointestinal: soft Musculoskeletal: nl extremities to inspection, nl gait and stance Results Result Diagram: 08/30/17 0647 08/28/17 0420 Results 24 hrs Laboratory Tests Test 08/29/17 12:37 08/30/17 06:47 Urine Random Creatinine 117.57 Urine Protein/Creatinine Ratio 0.08 Urine Total Protein 10.0 White Blood Count 14.2 H Red Blood Count 4.00 L Hemoglobin 10.3 L Hematocrit 31.7 L Mean Corpuscular Volume 79.3 L Mean Corpuscular Hemoglobin 25.8 L Mean Corpuscular Hemoglobin Concent 32.5 Red Cell Distribution Width 14.7 H Platelet Count 64 #L Mean Platelet Volume 10.8 H Neutrophils % 62.7 Lymphocytes % 27.0 Monocytes % 9.0 Eosinophils % 0.5 Basophils % 0.2 Nucleated Red Blood Cells % 0.0 Neutrophils # 8.9 H Lymphocytes # 3.8 H Monocytes # 1.3 H Eosinophils # 0.1 Basophils # 0.0 Nucleated Red Blood Cells # 0.0 Medications Medications Current Medications Ondansetron HCl (Zofran Inj) 4 mg Q6H PRN IV NAUSEA AND/OR VOMITING; Start at 06:00 Acetaminophen (Tylenol Tab) 650 mg Q6H PRN PO PAIN LEVEL 1-3 OR FEVER; Start 08/28/17 at 06:00 Zolpidem Tartrate (Ambien) 5 mg QHS PRN PO SLEEP; Start 08/28/17 at 06:00 Pantoprazole (Protonix Tab) 40 mg DAILY@06 PO Last administered on 08/30/17t 05:41; Admin Dose 40 MG; Start 08/28/17 at 06:00 Aspirin (Aspirin) 81 mg DAILY PO ; Start 08/30/17 at 09:00 Morphine Sulfate (morphine) 2 mg Q2H PRN IV PAIN LEVEL 4-6; Start 08/28/17 at 10:30 Atorvastatin Calcium (Lipitor) 20 mg HS PO Last administered on 08/29/17 21: 24; Admin Dose 20 MG; Start 08/28/17 at 21:00 Nitroglycerin (Nitroglycerin (Sl Tab) 0.4 Mg) 0.4 tab [id number] PRN SL CHEST PAIN; Start 08/28/17 at 19:30 Amlodipine Besylate (Norvasc) 2.5 mg DAILY PO ; Start 08/29/17 at 09:00 Isosorbide Dinitrate (Isordil) 5 mg TID PO Last administered on 08/29/17 12: 00; Admin Dose 5 MG; Start 08/29/17 at 09:00 JAMAAL LINDSEY M.D. Aug 30, 2017 08:18
[2017-08-30] MEDS: ASPIRIN 81 MG TAB PO SCH (08:28)
[2017-08-30] MEDS: ISOSORBIDE DINITRATE 5 MG TAB PO SCH ×3 (08:28→20:23)
[2017-08-30] MEDS: AMLODIPINE 2.5 MG TAB PO SCH (08:28)
[2017-08-30 14:09] LABS: MYELOPEROXIDASE ANTIBODY <1.0 AI; PROTEINASE-3 ANTIBODY <1.0 AI
--- NOTE | 2017-08-30 15:09 | CONS ---
DATE OF ADMISSION: 08/28/2017 DATE OF CONSULTATION: TYPE OF CONSULTATION: Rheumatology. REQUESTING PHYSICIAN: Dr. Attila Slaughter. REASON FOR CONSULTATION: Connective tissue disease. HISTORY OF PRESENT ILLNESS: The patient is a 37-year-old female who states that about 3 days prior to admission she had abdominal pain, diarrhea and subjective fevers and also developed midsternal ch est pain, pressure with associated shortness of breath and palpitations. Pain was nonpositional and she came in to the ED and in the ED was given some pain medications and the pain did resolve after a few hours in the ED. Of note, the patient did start having chest pain, back pain in 01/2017 and a t that time she went to [facility] and then was transferred to [place] where she had an angiogram that she was told was negative for any coronary artery disease and told it was likely auto immune. She was then transferred to [facility]. She had blood tests done here an d she was found to have, at that time, a positive CARRIE and positive rheumatoid factor. She was told likely autoimmune disease and referred to a client support analyst, Dr. Nickerson as an outpatient and he ordere d some blood tests and told her to return to discuss possibly starting the patient on steroids per t he patient. She was not given any medication; however, the patient's symptoms had, at that point, r esolved and she did not follow up until she had the second episode of chest pain just a few days sonia or to admission. She just was on nitroglycerin, she says, for the chest pain, no other medication o f note. Patient does endorse, at times, not currently generalized arthralgias in the hands, knees, wrists, shoulders without distinctive swelling. She denies ever having any rash, any photosensitivi ty any discoid lesions, any sicca symptoms, any miscarriages, any history of seizures or blood clots . No bright red blood in the rectum. No hematuria. No Raynauds. No oral or nasal ulcers. No mor deidre stiffness in general. She has otherwise been healthy until these episodes of chest pain. No s ick contacts. No recent travel outside of the [place] PAST MEDICAL HISTORY: The patient has had 4 full term pregnancies without any complications. SOCIAL HISTORY: No smoking, occasional alcohol, no history of drugs. PAST SURGICAL HISTORY: None. FAMILY HISTORY: Younger brother with multiple sclerosis. Father with prostate cancer. Mother with some form of colitis. ALLERGIES: NO KNOWN DRUG ALLERGIES. MEDICATIONS: Currently: 1. Aspirin 81 mg p.o. 2. Norvasc 2.5 p.o. 3. Isosorbide dinitrate 5 mg t.i.d. 4. Lipitor 20 mg at bedtime. 5. Nitroglycerin p.r.n. 6. Morphine p.r.n. 7. Zofran p.r.n. 8. Tylenol p.r.n. 9. Ambien p.r.n. 10. Protonix p.r.n. PHYSICAL EXAMINATION: VITAL SIGNS: Temperature 98.3, pulse 48, respiratory rate 17, BP 110/60, pulse oximetry 100 on room air. GENERAL: Alert and oriented, pleasant female in no acute distress. HEENT: NCAT. Extraocular movements intact. Oropharynx is clear. No oral ulcers, no malar rash. CARDIOVASCULAR: S1, S2, regular rate and rhythm. CHEST: Clear to auscultation bilaterally. ABDOMEN: Soft, nontender, nondistended. Bowel sounds present. NEUROLOGIC: Nonfocal. SKIN: No rashes. MUSCULOSKELETAL: Extremities can range all joints fully, no joint effusion, no tenderness at the emma ints currently. LABORATORY VALUES: White count slightly elevated at 14.2, hemoglobin 10.3, hematocrit 31.7, platele t count 64, MCV 79.3, RDW 14.7, neutrophils 62.7, lymphocytes 27, monocytes 9.0. ESR is 23, sodium 143, potassium 4.3, chloride 99, carbon dioxide 35, BUN 12, creatinine 0.53, calcium 9.4, glucose 12 9, total bilirubin 0.4, direct bilirubin 0, indirect 0.4, AST 22, ALT 38, alkaline phosphatase 91. CK 53. C-reactive protein elevated at 1.3. Total protein 7.4, albumin 3.9, globulin 3.5, lipase 42 . Positive rheumatoid factor, complement C3 116, C4 28. Hepatitis A, B and C negative. HIV negati ve. SPECT cardiac scan shows no evidence of perfusion defects, no wall motion abnormalities, left v entricle ejection fraction is 56. Chest x-ray shows no focal consolidation, pleural effusion or pne umothorax. IMPRESSION AND PLAN: 1. The patient is a 37-year-old female with a second presentation of chest pain that appears to be non-cardiac in terms of cardiovascular disease. She was found to have a positive CARRIE, positive rheu matoid factor. Of note, she is also found to be anemic and thrombocytopenia which is the most objec tive concerning finding. Other than the above, she really does not have any other signs or symptoms of lupus or an autoimmune condition; however, given the severity of her thrombocytopenia and her an emia, I agree with the workup as it has been done. We are waiting for the other ANAs, also an ANCA, double stranded DNA and an anti-cyclic citrullinated peptide test that is more specific for rheumat oid arthritis. I will also add an SSA, SSB. 2. Thrombocytopenia. I agree with a bone marrow biopsy and need to rule out any kind of malignant process given her young age. We will continue to follow the patient awaiting the above-mentioned te st results and possibly consider starting a steroid; however, there is no fitzgerald to treat her at this point. Other than her thrombocytopenia and mild anemia, she is asymptomatic. I would like to thank Dr. Slaughter for having me participate in this patient's care. Please do not hesitate to call with an y questions or concerns. Dictated By: DANIA ZENG/MANUEL Conf#: [id number] DID#: [id number] CC: ATTILA SLAUGHTER MD; LIBAN RIVERA;*EndCC*
--- NOTE | 2017-08-30 15:35 | CONS ---
Date/Time of Note Date/Time of Note DATE: 08/30/17 TIME: 15:25 Assessment/Plan Assessment/Plan Chief Complaint/Hosp Course IMPRESSION: 1. Positive troponin in the setting of a patient that is thought to have severe vasospastic disease, which definitely could cause positive troponins in the setting of severe vasospasm-no sig uptrend. Lexiscan this admite now negative for ischemia with NL EF. waiting for [facility] report from [facility] to confirm stated findings 2. Chest pain. 3. Vasospastic angina per history. 4. Dyslipidemia, on statin. 5. Bradycardia. 6. Abnormal electrocardiogram with inferior and lateral T-wave abnormalities. 7. Thrombocytopenia Recc: -Tele -serial ecg's -Continue norvasc/isordil/statin -Continue asa as tolerated -To have BM BX. Ok to proceed from cardiac standpoint on current medications at moderate risk without further noninvasive evaluation. Check post-op ECG and follow closely fro s/sx of cv complications Problems: Consultation Date/Type/Reason Admit Date/Time Aug 28, 2017 at 05:43 Initial Consult Date 08/30/17 Type of Consultation: cardiology Reason for Consultation positive troponin Referring Provider: OPAL SLAUGHTER MD Exam/Review of Systems Vital Signs Vitals Vital Signs Date Time Temp Pulse Resp B/P Pulse Ox O2 Delivery O2 Flow Rate FiO2 08/30/17 12:12 48 08/30/17 11:35 98.3 17 110/60 100 08/28/17 08:56 Room Air Intake and Output 08/29/17 08/29/17 08/30/17 15:00 23:00 07:00 Intake Total 880 ml 600 ml Balance 880 ml 600 ml Exam Review of Systems: CONSTITUTIONAL: No fevers, chills. PULMONARY: No sob CARDIOVASCULAR: No chest pain/palpitations GASTROINTESTINAL: No nausea/vomiting. GENITOURINARY: No hematuria/dysuria. MUSCULOSKELETAL: No myagias/arthalgias. PSYCHIATRIC: The patient denies depression. NEUROLOGIC: No weakness Constitutional: alert, oriented Psych: no complaints Head: normocephalic ENMT: mucosa pink and moist Neck: jvd (8-9 cm water), supple Respiratory: clear to auscultation Cardiovascular: regular rate and rhythm Gastrointestinal: non-tender, soft Musculoskeletal: muscle tone (normal) Extremities: edema (none) Neurological: other (No focal deficits) Results Result Diagram: 08/30/17 0647 08/28/17 0420 Results 24 hrs Laboratory Tests Test 08/30/17 06:47 White Blood Count 14.2 H Red Blood Count 4.00 L Hemoglobin 10.3 L Hematocrit 31.7 L Mean Corpuscular Volume 79.3 L Mean Corpuscular Hemoglobin 25.8 L Mean Corpuscular Hemoglobin Concent 32.5 Red Cell Distribution Width 14.7 H Platelet Count 64 #L Mean Platelet Volume 10.8 H Neutrophils % 62.7 Lymphocytes % 27.0 Monocytes % 9.0 Eosinophils % 0.5 Basophils % 0.2 Nucleated Red Blood Cells % 0.0 Neutrophils # 8.9 H Lymphocytes # 3.8 H Monocytes # 1.3 H Eosinophils # 0.1 Basophils # 0.0 Nucleated Red Blood Cells # 0.0 Medications Medications Current Medications Ondansetron HCl (Zofran Inj) 4 mg Q6H PRN IV NAUSEA AND/OR VOMITING; Start at 06:00 Acetaminophen (Tylenol Tab) 650 mg Q6H PRN PO PAIN LEVEL 1-3 OR FEVER Last administered on 08/30/17 15:09; Admin Dose 650 MG; Start 08/28/17 at 06:00 Zolpidem Tartrate (Ambien) 5 mg QHS PRN PO SLEEP; Start 08/28/17 at 06:00 Pantoprazole (Protonix Tab) 40 mg DAILY@06 PO Last administered on 08/30/17 05:41; Admin Dose 40 MG; Start 08/28/17 at 06:00 Aspirin (Aspirin) 81 mg DAILY PO Last administered on 08/30/17 08:28; Admin Dose 81 MG; Start 08/30/17 at 09:00 Morphine Sulfate (morphine) 2 mg Q2H PRN IV PAIN LEVEL 4-6; Start 08/28/17 at 10:30 Atorvastatin Calcium (Lipitor) 20 mg HS PO Last administered on 08/29/17 21: 24; Admin Dose 20 MG; Start 08/28/17 at 21:00 Nitroglycerin (Nitroglycerin (Sl Tab) 0.4 Mg) 0.4 tab [id number] PRN SL CHEST PAIN; Start 08/28/17 at 19:30 Amlodipine Besylate (Norvasc) 2.5 mg DAILY PO Last administered on 08/30/17 08:28; Admin Dose 2.5 MG; Start 08/29/17 at 09:00 Isosorbide Dinitrate (Isordil) 5 mg TID PO Last administered on 08/30/17 12: 35; Admin Dose 5 MG; Start 08/29/17 at 09:00 RHIANNA HALL Aug 30, 2017 15:35
[2017-08-30 17:52] LABS: ANA SCREEN POSITIVE (NEGATIVE)
--- NOTE | 2017-08-30 19:11 | PN ---
Date/Time of Note Date/Time of Note DATE: 08/30/17 TIME: 19:09 Assessment/Plan VTE Prophylaxis VTE Prophylaxis Intervention: other Lines/Catheters [facility] Saline Lock Urinary Cath still in place: No Assessment/Plan Chief Complaint/Hosp Course IMPRESSION: Other diagnoses include: 1. Patient has a positive troponin w vasospastic dis 2. , rule out underlying connective tissue disorder. 3. Rule out pericarditis. 4. History of CARRIE positive and history of rheumatoid factor positive. plan per cardio neg lexiscan bm biopsy per dr norman Problems: Subjective 24 Hr Interval Summary Respiratory: no complaints Cardiovascular: no complaints Exam/Review of Systems Vital Signs Vitals Vital Signs Date Time Temp Pulse Resp B/P Pulse Ox O2 Delivery O2 Flow Rate FiO2 08/30/17 17:01 98.3 57 17 94/51 99 08/28/17 08:56 Room Air Intake and Output 08/29/17 08/29/17 08/30/17 15:00 23:00 07:00 Intake Total 880 ml 600 ml Balance 880 ml 600 ml Exam Neck: supple Respiratory: clear to auscultation Cardiovascular: regular rate and rhythm Gastrointestinal: bowel sounds (+), soft Musculoskeletal: nl extremities to inspection Extremities: normal pulses Results Result Diagram: 08/30/17 0647 08/28/17 0420 Results 24 hrs Laboratory Tests Test 08/30/17 06:47 White Blood Count 14.2 H Red Blood Count 4.00 L Hemoglobin 10.3 L Hematocrit 31.7 L Mean Corpuscular Volume 79.3 L Mean Corpuscular Hemoglobin 25.8 L Mean Corpuscular Hemoglobin Concent 32.5 Red Cell Distribution Width 14.7 H Platelet Count 64 #L Mean Platelet Volume 10.8 H Neutrophils % 62.7 Lymphocytes % 27.0 Monocytes % 9.0 Eosinophils % 0.5 Basophils % 0.2 Nucleated Red Blood Cells % 0.0 Neutrophils # 8.9 H Lymphocytes # 3.8 H Monocytes # 1.3 H Eosinophils # 0.1 Basophils # 0.0 Nucleated Red Blood Cells # 0.0 Medications Medications Current Medications Ondansetron HCl (Zofran Inj) 4 mg Q6H PRN IV NAUSEA AND/OR VOMITING; Start at 06:00 Acetaminophen (Tylenol Tab) 650 mg Q6H PRN PO PAIN LEVEL 1-3 OR FEVER Last administered on 08/30/17 15:09; Admin Dose 650 MG; Start 08/28/17 at 06:00 Zolpidem Tartrate (Ambien) 5 mg QHS PRN PO SLEEP; Start 08/28/17 at 06:00 Pantoprazole (Protonix Tab) 40 mg DAILY@06 PO Last administered on 08/30/17 05:41; Admin Dose 40 MG; Start 08/28/17 at 06:00 Aspirin (Aspirin) 81 mg DAILY PO Last administered on 08/30/17 08:28; Admin Dose 81 MG; Start 08/30/17 at 09:00 Morphine Sulfate (morphine) 2 mg Q2H PRN IV PAIN LEVEL 4-6; Start 08/28/17 at 10:30 Atorvastatin Calcium (Lipitor) 20 mg HS PO Last administered on 08/29/17 21: 24; Admin Dose 20 MG; Start 08/28/17 at 21:00 Nitroglycerin (Nitroglycerin (Sl Tab) 0.4 Mg) 0.4 tab [id number] PRN SL CHEST PAIN; Start 08/28/17 at 19:30 Amlodipine Besylate (Norvasc) 2.5 mg DAILY PO Last administered on 08/30/17 08:28; Admin Dose 2.5 MG; Start 08/29/17 at 09:00 Isosorbide Dinitrate (Isordil) 5 mg TID PO Last administered on 08/30/17 12: 35; Admin Dose 5 MG; Start 08/29/17 at 09:00 OPAL SLAUGHTER MD Aug 30, 2017 19:11
[2017-08-30 19:16] LABS: CYCLIC CITRULLINATED PEP IGG <16 UNITS
[2017-08-30] MEDS: ATORVASTATIN 20 MG TAB PO SCH (20:23)
[2017-08-31] VITALS (13 sets, daily range): BP systolic 98–141; BP diastolic 54–68; PULSE 45–58; RESP 18–20
[2017-08-31] MEDS: PANTOPRAZOLE (EC) 40 MG TAB PO SCH (05:37)
[2017-08-31 08:42] LABS: BASOPHILS % 0.2 % (0.0-2.0); EOSINOPHILS # 0.1 10^3/ul (0.0-0.5); EOSINOPHILS % 0.4 % (0.0-7.0); HEMATOCRIT 34.9 % (37.0-47.0); HEMOGLOBIN 11.4 g/dl (12.0-16.0); LYMPHOCYTES # 4.2 10^3/ul (0.8-2.9); MEAN CORPUSCULAR HEMOGLOBIN 25.8 pg (29.0-33.0); MEAN CORPUSCULAR HGB CONC 32.7 g/dl (32.0-37.0); MONOCYTE # 1.1 10^3/ul (0.3-0.9); MONOCYTES % 7.7 % (0.0-11.0); PLATELET COUNT 122 10^3/UL (140-415); RED BLOOD COUNT 4.42 10^6/ul (4.20-5.40); RED CELL DISTRIBUTION WIDTH 14.7 % (11.5-14.5); WHITE BLOOD COUNT 14.4 10^3/ul (4.8-10.8)
[2017-08-31] MEDS: ISOSORBIDE DINITRATE 5 MG TAB PO SCH ×3 (09:00→20:34)
[2017-08-31] MEDS: AMLODIPINE 2.5 MG TAB PO SCH (09:00)
[2017-08-31] MEDS: ASPIRIN 81 MG TAB PO SCH (09:00)
--- NOTE | 2017-08-31 13:44 | CONS ---
Date/Time of Note Date/Time of Note DATE: 08/31/17 TIME: 13:38 Consult Date/Type/Reason Admit Date/Time Aug 28, 2017 at 05:43 Initial Consult Date 08/30/17 Type of Consultation: Rheumatology Ordering Provider: OPAL SLAUGHTER MD Subjective No events overnight. Continues to be pain-free. No Chest pain, no SOB. Objective Vital Signs Date Time Temp Pulse Resp B/P Pulse Ox O2 Delivery O2 Flow Rate FiO2 08/31/17 12:14 53 08/31/17 11:33 98.5 18 116/61 100 Room Air Intake and Output 08/30/17 08/30/17 08/31/17 14:59 22:59 06:59 Intake Total 1200 ml 650 ml Balance 1200 ml 650 ml Exam GENERAL: Alert and oriented, pleasant female in no acute distress. HEENT: NCAT. Extraocular movements intact. Oropharynx is clear. No oral ulcers, no malar rash. CARDIOVASCULAR: S1, S2, regular rate and rhythm. CHEST: Clear to auscultation bilaterally. ABDOMEN: Soft, nontender, nondistended. Bowel sounds present. NEUROLOGIC: Nonfocal. SKIN: No rashes. MUSCULOSKELETAL: Extremities can range all joints fully, no joint effusion, no tenderness at the joints currently. Results/Medications Result Diagram: 08/31/17 0824 08/28/17 0420 Results 24 hrs Laboratory Tests Test 08/31/17 08:24 White Blood Count 14.4 H Red Blood Count 4.42 Hemoglobin 11.4 L Hematocrit 34.9 L Mean Corpuscular Volume 79.0 L Mean Corpuscular Hemoglobin 25.8 L Mean Corpuscular Hemoglobin Concent 32.7 Red Cell Distribution Width 14.7 H Platelet Count 122 #L Mean Platelet Volume 11.0 H Neutrophils % 62.0 Lymphocytes % 29.0 Monocytes % 7.7 Eosinophils % 0.4 Basophils % 0.2 Nucleated Red Blood Cells % 0.0 Neutrophils # 9.0 H Lymphocytes # 4.2 H Monocytes # 1.1 H Eosinophils # 0.1 Basophils # 0.0 Nucleated Red Blood Cells # 0.0 Medications Current Medications Ondansetron HCl (Zofran Inj) 4 mg Q6H PRN IV NAUSEA AND/OR VOMITING; Start at 06:00 Acetaminophen (Tylenol Tab) 650 mg Q6H PRN PO PAIN LEVEL 1-3 OR FEVER Last administered on 08/30/17 15:09; Admin Dose 650 MG; Start 08/28/17 at 06:00 Zolpidem Tartrate (Ambien) 5 mg QHS PRN PO SLEEP; Start 08/28/17 at 06:00 Pantoprazole (Protonix Tab) 40 mg DAILY@06 PO Last administered on 08/31/17 05:37; Admin Dose 40 MG; Start 08/28/17 at 06:00 Aspirin (Aspirin) 81 mg DAILY PO Last administered on 08/30/17 08:28; Admin Dose 81 MG; Start 08/30/17 at 09:00 Morphine Sulfate (morphine) 2 mg Q2H PRN IV PAIN LEVEL 4-6; Start 08/28/17 at 10:30 Atorvastatin Calcium (Lipitor) 20 mg HS PO Last administered on 08/30/17 20: 23; Admin Dose 20 MG; Start 08/28/17 at 21:00 Nitroglycerin (Nitroglycerin (Sl Tab) 0.4 Mg) 0.4 tab [id number] PRN SL CHEST PAIN; Start 08/28/17 at 19:30 Amlodipine Besylate (Norvasc) 2.5 mg DAILY PO Last administered on 08/30/17 08:28; Admin Dose 2.5 MG; Start 08/29/17 at 09:00 Isosorbide Dinitrate (Isordil) 5 mg TID PO Last administered on 08/31/17 12: 35; Admin Dose 5 MG; Start 08/29/17 at 09:00 Assessment/Plan Additional Assessment/Plan 1. The patient is a 37-year-old female with a second presentation of chest pain that appears to be non- cardiovascular. She was found to have a positive CARRIE, positive rheumatoid factor. Of note, she is also found to be anemic and thrombocytopenia which is the most objective concerning finding. Other than the above, she really does not have any other signs or symptoms of lupus or an autoimmune condition; however, given the severity of her thrombocytopenia and her anemia, I agree with the workup as it has been done. We are waiting for the o an ANCA, double stranded DNA, SSA, SSB and an anti-cyclic citrullinated peptide test that is more specific for rheumatoid arthritis. 2. Thrombocytopenia. I agree with a bone marrow biopsy and need to rule out any kind of malignant process given her young age. We will continue to follow the patient awaiting the above-mentioned test results and possibly consider starting a steroid; however, there is no fitzgerald to treat her at this point. Other than her thrombocytopenia and mild anemia, she is asymptomatic. I would like to thank Dr. Slaughter for having me participate in this patient's care. Please do not hesitate to call with any questions or concerns. DANIA YANEZ MD Aug 31, 2017 13:44
--- NOTE | 2017-08-31 13:46 | CONS ---
Date/Time of Note Date/Time of Note DATE: 08/31/17 TIME: 13:43 Assessment/Plan Assessment/Plan Chief Complaint/Hosp Course IMPRESSION: 1. Positive troponin in the setting of a patient that is thought to have severe vasospastic disease, which definitely could cause positive troponins in the setting of severe vasospasm-no sig uptrend. Lexiscan this admite now negative for ischemia with NL EF. waiting for [facility] report from [facility] to confirm stated findings 2. Chest pain. 3. Vasospastic angina per history. 4. Dyslipidemia, on statin. 5. Bradycardia. 6. Abnormal electrocardiogram with inferior and lateral T-wave abnormalities. 7. Thrombocytopenia Recc: -Tele -serial ecg's -Continue norvasc/isordil/statin -Continue asa as tolerated -To have BM BX today. Ok to proceed from cardiac standpoint on current medications at moderate risk without further noninvasive evaluation. Check post- op ECG and follow closely fro s/sx of cv complications Problems: Consultation Date/Type/Reason Admit Date/Time Aug 28, 2017 at 05:43 Initial Consult Date 08/30/17 Type of Consultation: cardiology Reason for Consultation chest pain/positive troponin Referring Provider: OPAL SLAUGHTER MD Exam/Review of Systems Vital Signs Vitals Vital Signs Date Time Temp Pulse Resp B/P Pulse Ox O2 Delivery O2 Flow Rate FiO2 08/31/17 12:14 53 08/31/17 11:33 98.5 18 116/61 100 Room Air Intake and Output 08/30/17 08/30/17 08/31/17 15:00 23:00 07:00 Intake Total 1200 ml 650 ml Balance 1200 ml 650 ml Exam Review of Systems: CONSTITUTIONAL: No fevers, chills. PULMONARY: No sob CARDIOVASCULAR: No chest pain/palpitations GASTROINTESTINAL: No nausea/vomiting. GENITOURINARY: No hematuria/dysuria. MUSCULOSKELETAL: No myagias/arthalgias. PSYCHIATRIC: The patient denies depression. NEUROLOGIC: No weakness Constitutional: alert, oriented Psych: no complaints Head: normocephalic ENMT: mucosa pink and moist Neck: jvd (9 cm water), supple Respiratory: clear to auscultation Cardiovascular: regular rate and rhythm Gastrointestinal: non-tender, soft Musculoskeletal: muscle tone (normal) Extremities: edema (none) Neurological: other (No focal deficits) Results Result Diagram: 08/31/17 0824 08/28/17 0420 Results 24 hrs Laboratory Tests Test 08/31/17 08:24 White Blood Count 14.4 H Red Blood Count 4.42 Hemoglobin 11.4 L Hematocrit 34.9 L Mean Corpuscular Volume 79.0 L Mean Corpuscular Hemoglobin 25.8 L Mean Corpuscular Hemoglobin Concent 32.7 Red Cell Distribution Width 14.7 H Platelet Count 122 #L Mean Platelet Volume 11.0 H Neutrophils % 62.0 Lymphocytes % 29.0 Monocytes % 7.7 Eosinophils % 0.4 Basophils % 0.2 Nucleated Red Blood Cells % 0.0 Neutrophils # 9.0 H Lymphocytes # 4.2 H Monocytes # 1.1 H Eosinophils # 0.1 Basophils # 0.0 Nucleated Red Blood Cells # 0.0 Medications Medications Current Medications Ondansetron HCl (Zofran Inj) 4 mg Q6H PRN IV NAUSEA AND/OR VOMITING; Start at 06:00 Acetaminophen (Tylenol Tab) 650 mg Q6H PRN PO PAIN LEVEL 1-3 OR FEVER Last administered on 08/30/17 15:09; Admin Dose 650 MG; Start 08/28/17 at 06:00 Zolpidem Tartrate (Ambien) 5 mg QHS PRN PO SLEEP; Start 08/28/17 at 06:00 Pantoprazole (Protonix Tab) 40 mg DAILY@06 PO Last administered on 08/31/17 05:37; Admin Dose 40 MG; Start 08/28/17 at 06:00 Aspirin (Aspirin) 81 mg DAILY PO Last administered on 08/30/17 08:28; Admin Dose 81 MG; Start 08/30/17 at 09:00 Morphine Sulfate (morphine) 2 mg Q2H PRN IV PAIN LEVEL 4-6; Start 08/28/17 at 10:30 Atorvastatin Calcium (Lipitor) 20 mg HS PO Last administered on 08/30/17 20: 23; Admin Dose 20 MG; Start 08/28/17 at 21:00 Nitroglycerin (Nitroglycerin (Sl Tab) 0.4 Mg) 0.4 tab [id number] PRN SL CHEST PAIN; Start 08/28/17 at 19:30 Amlodipine Besylate (Norvasc) 2.5 mg DAILY PO Last administered on 08/30/17 08:28; Admin Dose 2.5 MG; Start 08/29/17 at 09:00 Isosorbide Dinitrate (Isordil) 5 mg TID PO Last administered on 08/31/17 12: 35; Admin Dose 5 MG; Start 08/29/17 at 09:00 RHIANNA HALL Aug 31, 2017 13:46
--- NOTE | 2017-08-31 16:59 | PN ---
Date/Time of Note Date/Time of Note DATE: 08/31/17 TIME: 16:58 Assessment/Plan VTE Prophylaxis VTE Prophylaxis Intervention: other Lines/Catheters IV Catheter Type (from Nrs): Saline Lock Urinary Cath still in place: No Assessment/Plan Chief Complaint/Hosp Course IMPRESSION: Other diagnoses include: 1. Patient has a positive troponin w vasospastic dis 2. , rule out underlying connective tissue disorder. 3. Rule out pericarditis. 4. History of CARRIE positive and history of rheumatoid factor positive. plan per cardio neg lexiscan bm biopsy per dr norman will benefit from steroid Problems: Subjective 24 Hr Interval Summary Respiratory: no complaints Cardiovascular: no complaints Musculoskeletal: bone/joint pain (+) Exam/Review of Systems Vital Signs Vitals Vital Signs Date Time Temp Pulse Resp B/P Pulse Ox O2 Delivery O2 Flow Rate FiO2 08/31/17 16:41 98.3 58 18 141/63 99 Room Air Intake and Output 08/30/17 08/30/17 08/31/17 15:00 23:00 07:00 Intake Total 1200 ml 650 ml Balance 1200 ml 650 ml Exam Neck: supple Respiratory: clear to auscultation Cardiovascular: regular rate and rhythm Gastrointestinal: soft Musculoskeletal: nl extremities to inspection Extremities: normal pulses Results Result Diagram: 08/31/17 0824 08/28/17 0420 Results 24 hrs Laboratory Tests Test 08/31/17 08:24 White Blood Count 14.4 H Red Blood Count 4.42 Hemoglobin 11.4 L Hematocrit 34.9 L Mean Corpuscular Volume 79.0 L Mean Corpuscular Hemoglobin 25.8 L Mean Corpuscular Hemoglobin Concent 32.7 Red Cell Distribution Width 14.7 H Platelet Count 122 #L Mean Platelet Volume 11.0 H Neutrophils % 62.0 Lymphocytes % 29.0 Monocytes % 7.7 Eosinophils % 0.4 Basophils % 0.2 Nucleated Red Blood Cells % 0.0 Neutrophils # 9.0 H Lymphocytes # 4.2 H Monocytes # 1.1 H Eosinophils # 0.1 Basophils # 0.0 Nucleated Red Blood Cells # 0.0 Medications Medications Current Medications Ondansetron HCl (Zofran Inj) 4 mg Q6H PRN IV NAUSEA AND/OR VOMITING; Start at 06:00 Acetaminophen (Tylenol Tab) 650 mg Q6H PRN PO PAIN LEVEL 1-3 OR FEVER Last administered on 08/30/17 15:09; Admin Dose 650 MG; Start 08/28/17 at 06:00 Zolpidem Tartrate (Ambien) 5 mg QHS PRN PO SLEEP; Start 08/28/17 at 06:00 Pantoprazole (Protonix Tab) 40 mg DAILY@06 PO Last administered on 08/31/17 05:37; Admin Dose 40 MG; Start 08/28/17 at 06:00 Aspirin (Aspirin) 81 mg DAILY PO Last administered on 08/30/17 08:28; Admin Dose 81 MG; Start 08/30/17 at 09:00 Morphine Sulfate (morphine) 2 mg Q2H PRN IV PAIN LEVEL 4-6; Start 08/28/17 at 10:30 Atorvastatin Calcium (Lipitor) 20 mg HS PO Last administered on 08/30/17 20: 23; Admin Dose 20 MG; Start 08/28/17 at 21:00 Nitroglycerin (Nitroglycerin (Sl Tab) 0.4 Mg) 0.4 tab [id number] PRN SL CHEST PAIN; Start 08/28/17 at 19:30 Amlodipine Besylate (Norvasc) 2.5 mg DAILY PO Last administered on 08/30/17 08:28; Admin Dose 2.5 MG; Start 08/29/17 at 09:00 Isosorbide Dinitrate (Isordil) 5 mg TID PO Last administered on 08/31/17 12: 35; Admin Dose 5 MG; Start 08/29/17 at 09:00 OPAL SLAUGHTER MD Aug 31, 2017 16:59
[2017-08-31] MEDS ORDERED: PROPOFOL 0 ML ONE (17:04)
[2017-08-31] MEDS ORDERED: LIDOCAINE 1% (MDV) 20 ML INJ ONE (17:04)
[2017-08-31] MEDS ORDERED: MIDAZOLAM 1 MG/ML 2 ML INJ ONE ×2 (17:05)
[2017-08-31] MEDS ORDERED: FENTAnyl 50 MCG/ML VIAL ONE (17:05)
--- NOTE | 2017-08-31 18:00 | RADRPT ---
PROCEDURE: CT guided bone marrow aspiration and left iliac bone biopsy. CLINICAL INDICATION: History of pancytopenia. TECHNIQUE: Informed consent was obtained. The procedure, risks, benefits, complications and alternatives were e xplained to the patient. Risks including bleeding and infection were explained. The patient understo od and was willing to proceed. A procedural pause was performed. The patient's name, date of , and procedure to be performed were verified. One or more of the following dose reduction techni ques were used: Automated exposure control, adjustment of the mA and/or kV according to patient size , use of iterative reconstruction technique. DICOM images are available. Using local anesthetic, sterile technique and CT guidance, an 11-gauge On Control bone biopsy needle was advanced into the left iliac bone via a posterior approach. Bone marrow aspiration was perform ed yielding approximately 10 ml. The bone biopsy needle was then advanced an additional 4 cm using the power drill device and tissue was obtained. Adequate tissue was obtained according to the patho logist present during the procedure. The needle was removed. A postprocedural scan was performed. A dressing was applied. The patient tolerated procedure well. COMPARISON: None. FINDINGS: Initial images demonstrate the tip of the needle at the posterior margin of the left iliac bone. Acosta bsequent images demonstrate the needle within the bone. Post biopsy images demonstrate no immediate complication. IMPRESSION: 1. Successful CT guided bone marrow aspiration and biopsy. RPTAT: QQ .Albert Ruelas MD, Date Time Electronically viewed and signed by .Albert Ruelas MD, MD on 08/31/2017 18:00 .R/
[2017-08-31] MEDS: ATORVASTATIN 20 MG TAB PO SCH (20:30)
[2017-09-01] VITALS (11 sets, daily range): BP systolic 105–122; BP diastolic 54–66; PULSE 47–67; RESP 20
[2017-09-01] MEDS: PANTOPRAZOLE (EC) 40 MG TAB PO SCH (05:22)
[2017-09-01] MEDS: ISOSORBIDE DINITRATE 5 MG TAB PO SCH ×3 (08:18→20:38)
[2017-09-01] MEDS: AMLODIPINE 2.5 MG TAB PO SCH (08:18)
[2017-09-01] MEDS: ASPIRIN 81 MG TAB PO SCH (08:18)
--- NOTE | 2017-09-01 11:20 | CONS ---
Date/Time of Note Date/Time of Note DATE: 09/01/17 TIME: : Assessment/Plan Assessment/Plan Chief Complaint/Hosp Course 37 yo wtih #Chest pain #Leukocytosis #Thrombcytopenia #Rheumatoid Arthritis -Th most likely reason for patients leukocytosis and thrombocytopenia is her underlying rheumatoid arthritis especially since she has known about this at least since last January when she was admitted to [facility]. Still given her young age we'll need to rule out underlying bone marrow dyscrasia such as leukemia or myeloproliferative disorder. We will order a bone marrow biopsy at this time and send the bone marrow biopsy for flow cytometry, GEOFF 2 mutation analysis, BCR ABL mutation analysis -appreciate recs by rheumatology to evaluate for underlying rheumatologic disorder. at this time, there is no indication to immediately start treatment. -Chest pain is likely secondary to vasospasm. Continue recommendations per cardiology including aspirin and statin A total of 40 minutes of face to face time was spent speaking with the patient, of which greater than 50% was spent in counseling and coordination of care and the detailed question and answer session. Problems: Consultation Date/Type/Reason Admit Date/Time Aug 28, 2017 at 05:43 Initial Consult Date 08/30/17 Type of Consultation: Hematology Reason for Consultation anemia/ thrombocytopenia Referring Provider: OPAL SLAUGHTER MD 24 HR Interval Summary Free Text/Dictation pt underwent bone marrow bx yesterday Exam/Review of Systems Vital Signs Vitals Vital Signs Date Time Temp Pulse Resp B/P Pulse Ox O2 Delivery O2 Flow Rate FiO2 09/01/17 08:31 47 09/01/17 08:02 98.3 20 116/54 99 08/31/17 18:20 Room Air Intake and Output 08/31/17 08/31/17 09/01/17 15:00 23:00 07:00 Intake Total 550 ml Balance 550 ml Exam Constitutional: alert, oriented Psych: nl mood/affect Head: normocephalic Eyes: nl conjunctiva ENMT: nl external ears & nose Neck: non-tender, supple Respiratory: clear to auscultation Cardiovascular: regular rate and rhythm Gastrointestinal: nl liver, spleen, soft Musculoskeletal: nl extremities to inspection Results Result Diagram: 08/31/17 0824 08/28/17 0420 Medications Medications Current Medications Ondansetron HCl (Zofran Inj) 4 mg Q6H PRN IV NAUSEA AND/OR VOMITING; Start at 06:00 Acetaminophen (Tylenol Tab) 650 mg Q6H PRN PO PAIN LEVEL 1-3 OR FEVER Last administered on 08/30/17 15:09; Admin Dose 650 MG; Start 08/28/17 at 06:00 Zolpidem Tartrate (Ambien) 5 mg QHS PRN PO SLEEP; Start 08/28/17 at 06:00 Pantoprazole (Protonix Tab) 40 mg DAILY@06 PO Last administered on 09/01/17 05 :22; Admin Dose 40 MG; Start 08/28/17 at 06:00 Aspirin (Aspirin) 81 mg DAILY PO Last administered on 09/01/17 08:18; Admin Dose 81 MG; Start 08/30/17 at 09:00 Morphine Sulfate (morphine) 2 mg Q2H PRN IV PAIN LEVEL 4-6; Start 08/28/17 at 10:30 Atorvastatin Calcium (Lipitor) 20 mg HS PO Last administered on 08/31/17 20: 30; Admin Dose 20 MG; Start 08/28/17 at 21:00 Nitroglycerin (Nitroglycerin (Sl Tab) 0.4 Mg) 0.4 tab [id number] PRN SL CHEST PAIN; Start 08/28/17 at 19:30 Amlodipine Besylate (Norvasc) 2.5 mg DAILY PO Last administered on 09/01/17 08 :18; Admin Dose 2.5 MG; Start 08/29/17 at 09:00 Isosorbide Dinitrate (Isordil) 5 mg TID PO Last administered on 09/01/17 08:18 ; Admin Dose 5 MG; Start 08/29/17 at 09:00 JAMAAL LINDSEY M.D. Sep 01, 2017 11:20
--- NOTE | 2017-09-01 13:40 | PN ---
Date/Time of Note Date/Time of Note DATE: 09/01/17 TIME: 13:39 Assessment/Plan VTE Prophylaxis VTE Prophylaxis Intervention: ambulation Lines/Catheters IV [facility]from [facility] Saline Lock Urinary Cath still in place: No Assessment/Plan Chief Complaint/Hosp Course 1. Patient has a positive troponin, no overnight events 2. rule out underlying connective tissue disorder. 3. Rule out pericarditis. 4. History of CARRIE positive and history of rheumatoid factor positive. Problems: Assessment/Plan 1. Possible discharge 2. continue current medications Subjective 24 Hr Interval Summary Constitutional: improved, no complaints Musculoskeletal: no complaints Skin: no complaints Exam/Review of Systems Vital Signs Vitals Vital Signs Date Time Temp Pulse Resp B/P Pulse Ox O2 Delivery O2 Flow Rate FiO2 09/01/17 12:51 97.8 56 20 118/66 99 08/31/17 18:20 Room Air Intake and Output 08/31/17 08/31/17 09/01/17 15:00 23:00 07:00 Intake Total 550 ml Balance 550 ml Exam Constitutional: alert, oriented Neck: supple Respiratory: clear to auscultation Cardiovascular: regular rate and rhythm Results Result Diagram: 08/31/17 0824 08/28/17 0420 Medications Medications Current Medications Ondansetron HCl (Zofran Inj) 4 mg Q6H PRN IV NAUSEA AND/OR VOMITING; Start at 06:00 Acetaminophen (Tylenol Tab) 650 mg Q6H PRN PO PAIN LEVEL 1-3 OR FEVER Last administered on 08/30/17 15:09; Admin Dose 650 MG; Start 08/28/17 at 06:00 Zolpidem Tartrate (Ambien) 5 mg QHS PRN PO SLEEP; Start 08/28/17 at 06:00 Pantoprazole (Protonix Tab) 40 mg DAILY@06 PO Last administered on 09/01/17 05 :22; Admin Dose 40 MG; Start 08/28/17 at 06:00 Aspirin (Aspirin) 81 mg DAILY PO Last administered on 09/01/17 08:18; Admin Dose 81 MG; Start 08/30/17 at 09:00 Morphine Sulfate (morphine) 2 mg Q2H PRN IV PAIN LEVEL 4-6; Start 08/28/17 at 10:30 Atorvastatin Calcium (Lipitor) 20 mg HS PO Last administered on 08/31/17 20: 30; Admin Dose 20 MG; Start 08/28/17 at 21:00 Nitroglycerin (Nitroglycerin (Sl Tab) 0.4 Mg) 0.4 tab [id number] PRN SL CHEST PAIN; Start 08/28/17 at 19:30 Amlodipine Besylate (Norvasc) 2.5 mg DAILY PO Last administered on 09/01/17 08 :18; Admin Dose 2.5 MG; Start 08/29/17 at 09:00 Isosorbide Dinitrate (Isordil) 5 mg TID PO Last administered on 09/01/17 08:18 ; Admin Dose 5 MG; Start 08/29/17 at 09:00 HEAVEN RAMSEY Sep 01, 2017 13:40
--- NOTE | 2017-09-01 15:35 | CONS ---
Date/Time of Note Date/Time of Note DATE: 09/01/17 TIME: 15:33 Assessment/Plan Assessment/Plan Chief Complaint/Hosp Course IMPRESSION: 1. Positive troponin in the setting of a patient that is thought to have severe vasospastic disease, which definitely could cause positive troponins in the setting of severe vasospasm-no sig uptrend. Lexiscan this admit negative for ischemia with NL EF. 2. Chest pain. 3. Vasospastic angina per history. 4. Dyslipidemia, on statin. 5. Bradycardia. 6. Abnormal electrocardiogram with inferior and lateral T-wave abnormalities. 7. Thrombocytopenia Recc: -Tele -serial ecg's -Continue norvasc/isordil/statin -Continue asa as tolerated -ongoing evaluation of thrombocytopenia/heme following -OK for d/c planning from cardiac standdpoint Problems: Consultation Date/Type/Reason Admit Date/Time Aug 28, 2017 at 05:43 Initial Consult Date 08/30/17 Type of Consultation: cardiology Reason for Consultation chest pain/positive troponin Referring Provider: OPAL SLAUGHTER MD Exam/Review of Systems Vital Signs Vitals Vital Signs Date Time Temp Pulse Resp B/P Pulse Ox O2 Delivery O2 Flow Rate FiO2 09/01/17 12:51 97.8 56 20 118/66 99 08/31/17 18:20 Room Air Intake and Output 08/31/17 08/31/17 09/01/17 15:00 23:00 07:00 Intake Total 550 ml Balance 550 ml Exam Review of Systems: CONSTITUTIONAL: No fevers, chills. PULMONARY: No sob CARDIOVASCULAR: No chest pain/palpitations GASTROINTESTINAL: No nausea/vomiting. GENITOURINARY: No hematuria/dysuria. MUSCULOSKELETAL: No myagias/arthalgias. PSYCHIATRIC: The patient denies depression. NEUROLOGIC: No weakness Constitutional: alert Psych: no complaints Head: normocephalic Neck: jvd (9 cm water), supple Respiratory: clear to auscultation Cardiovascular: regular rate and rhythm Gastrointestinal: non-tender, soft Musculoskeletal: muscle tone (normal) Extremities: edema (none) Neurological: other (No focal deficits) Results Result Diagram: 08/31/17 0824 08/28/17 0420 Medications Medications Current Medications Ondansetron HCl (Zofran Inj) 4 mg Q6H PRN IV NAUSEA AND/OR VOMITING; Start at 06:00 Acetaminophen (Tylenol Tab) 650 mg Q6H PRN PO PAIN LEVEL 1-3 OR FEVER Last administered on 08/30/17 15:09; Admin Dose 650 MG; Start 08/28/17 at 06:00 Zolpidem Tartrate (Ambien) 5 mg QHS PRN PO SLEEP; Start 08/28/17 at 06:00 Pantoprazole (Protonix Tab) 40 mg DAILY@06 PO Last administered on 09/01/17 05 :22; Admin Dose 40 MG; Start 08/28/17 at 06:00 Aspirin (Aspirin) 81 mg DAILY PO Last administered on 09/01/17 08:18; Admin Dose 81 MG; Start 08/30/17 at 09:00 Morphine Sulfate (morphine) 2 mg Q2H PRN IV PAIN LEVEL 4-6; Start 08/28/17 at 10:30 Atorvastatin Calcium (Lipitor) 20 mg HS PO Last administered on 08/31/17 20: 30; Admin Dose 20 MG; Start 08/28/17 at 21:00 Nitroglycerin (Nitroglycerin (Sl Tab) 0.4 Mg) 0.4 tab [id number] PRN SL CHEST PAIN; Start 08/28/17 at 19:30 Amlodipine Besylate (Norvasc) 2.5 mg DAILY PO Last administered on 09/01/17 08 :18; Admin Dose 2.5 MG; Start 08/29/17 at 09:00 Isosorbide Dinitrate (Isordil) 5 mg TID PO Last administered on 09/01/17 13:56 ; Admin Dose 5 MG; Start 08/29/17 at 09:00 RHIANNA HALL Sep 01, 2017 15:35
[2017-09-01] MEDS: ATORVASTATIN 20 MG TAB PO SCH (20:32)
[2017-09-02] VITALS (13 sets, daily range): BP systolic 98–119; BP diastolic 52–71; PULSE 47–66; RESP 16–20
[2017-09-02] MEDS: PANTOPRAZOLE (EC) 40 MG TAB PO SCH (05:35)
[2017-09-02] MEDS: ASPIRIN 81 MG TAB PO SCH (09:46)
[2017-09-02] MEDS: ISOSORBIDE DINITRATE 5 MG TAB PO SCH ×3 (09:46→20:52)
[2017-09-02] MEDS: AMLODIPINE 2.5 MG TAB PO SCH (09:47)
--- NOTE | 2017-09-02 13:32 | PN ---
Date/Time of Note Date/Time of Note DATE: 09/02/17 TIME: 13:31 Assessment/Plan VTE Prophylaxis VTE Prophylaxis Intervention: ambulation Lines/Catheters IV C[facility]ter Type (from [facility] Saline Lock Urinary Cath still in place: No Assessment/Plan Chief Complaint/Hosp Course 1. Patient has a positive troponin, no overnight events 2. rule out underlying connective tissue disorder. 3. Rule out pericarditis. 4. History of CARRIE positive and history of rheumatoid factor positive. Problems: Assessment/Plan 1. Continue current treatment 2. Can have shower Subjective 24 Hr Interval Summary Constitutional: improved, no complaints Exam/Review of Systems Vital Signs Vitals Vital Signs Date Time Temp Pulse Resp B/P Pulse Ox O2 Delivery O2 Flow Rate FiO2 09/02/17 12:07 54 09/02/17 12:04 98.6 18 107/66 97 08/31/17 18:20 Room Air Intake and Output 09/01/17 09/01/17 09/02/17 15:00 23:00 07:00 Intake Total 500 ml 600 ml Balance 500 ml 600 ml Exam Constitutional: alert, oriented Respiratory: clear to auscultation Cardiovascular: regular rate and rhythm Results Result Diagram: 08/31/17 0824 Results 24 hrs Laboratory Tests Test 09/02/17 09:57 Lab Scanned Report REFERENCE LAB Medications Medications Current Medications Ondansetron HCl (Zofran Inj) 4 mg Q6H PRN IV NAUSEA AND/OR VOMITING; Start at 06:00 Acetaminophen (Tylenol Tab) 650 mg Q6H PRN PO PAIN LEVEL 1-3 OR FEVER Last administered on 08/30/17 15:09; Admin Dose 650 MG; Start 08/28/17 at 06:00 Zolpidem Tartrate (Ambien) 5 mg QHS PRN PO SLEEP; Start 08/28/17 at 06:00 Pantoprazole (Protonix Tab) 40 mg DAILY@06 PO Last administered on 09/02/17 05 :35; Admin Dose 40 MG; Start 08/28/17 at 06:00 Aspirin (Aspirin) 81 mg DAILY PO Last administered on 09/02/17 09:46; Admin Dose 81 MG; Start 08/30/17 at 09:00 Morphine Sulfate (morphine) 2 mg Q2H PRN IV PAIN LEVEL 4-6; Start 08/28/17 at 10:30 Atorvastatin Calcium (Lipitor) 20 mg HS PO Last administered on 09/01/17 20:32 ; Admin Dose 20 MG; Start 08/28/17 at 21:00 Nitroglycerin (Nitroglycerin (Sl Tab) 0.4 Mg) 0.4 tab [id number] PRN SL CHEST PAIN; Start 08/28/17 at 19:30 Amlodipine Besylate (Norvasc) 2.5 mg DAILY PO Last administered on 09/02/17 09 :47; Admin Dose 2.5 MG; Start 08/29/17 at 09:00 Isosorbide Dinitrate (Isordil) 5 mg TID PO Last administered on 09/02/17 09:46 ; Admin Dose 5 MG; Start 08/29/17 at 09:00 HEAVEN RAMSEY Sep 02, 2017 13:32
--- NOTE | 2017-09-02 14:51 | CONS ---
Date/Time of Note Date/Time of Note DATE: 09/02/17 TIME: 14:49 Assessment/Plan Assessment/Plan Chief Complaint/Hosp Course IMPRESSION: 1. Positive troponin in the setting of a patient that is thought to have severe vasospastic disease, which definitely could cause positive troponins in the setting of severe vasospasm-no sig uptrend. Lexiscan this admit negative for ischemia with NL EF. 2. Chest pain. 3. Vasospastic angina per history. 4. Dyslipidemia, on statin. 5. Bradycardia.with satble BP 6. Abnormal electrocardiogram with inferior and lateral T-wave abnormalities. 7. Thrombocytopenia Recc: -Tele -serial ecg's -Continue isordil -Continue asa as tolerated only given low platelets -Continue norvasc as tolerated only to prevent recurrent vasospasm -ongoing evaluation of thrombocytopenia/heme following with pnding BM Bx -OK for d/c planning from cardiac standdpoint Problems: Consultation Date/Type/Reason Admit Date/Time Aug 28, 2017 at 05:43 Initial Consult Date 08/30/17 Type of Consultation: cardiology Reason for Consultation positive troponin Referring Provider: OPAL SLAUGHTER MD Exam/Review of Systems Vital Signs Vitals Vital Signs Date Time Temp Pulse Resp B/P Pulse Ox O2 Delivery O2 Flow Rate FiO2 09/02/17 12:07 54 09/02/17 12:04 98.6 18 107/66 97 08/31/17 18:20 Room Air Intake and Output 09/01/17 09/01/17 09/02/17 15:00 23:00 07:00 Intake Total 500 ml 600 ml Balance 500 ml 600 ml Exam Review of Systems: CONSTITUTIONAL: No fevers, chills. PULMONARY: No sob CARDIOVASCULAR: No chest pain/palpitations GASTROINTESTINAL: No nausea/vomiting. GENITOURINARY: No hematuria/dysuria. MUSCULOSKELETAL: No myagias/arthalgias. PSYCHIATRIC: The patient denies depression. NEUROLOGIC: No weakness Constitutional: alert, oriented Psych: no complaints Head: normocephalic ENMT: mucosa pink and moist Neck: jvd (8 cm water), supple Respiratory: clear to auscultation Cardiovascular: regular rate and rhythm Gastrointestinal: non-tender, soft Musculoskeletal: muscle tone (normal) Extremities: edema (none) Neurological: other (No focal deficits) Results Result Diagram: 08/31/17 0824 Results 24 hrs Laboratory Tests Test 09/02/17 09:57 Lab Scanned Report REFERENCE LAB Medications Medications Current Medications Ondansetron HCl (Zofran Inj) 4 mg Q6H PRN IV NAUSEA AND/OR VOMITING; Start at 06:00 Acetaminophen (Tylenol Tab) 650 mg Q6H PRN PO PAIN LEVEL 1-3 OR FEVER Last administered on 08/30/17 15:09; Admin Dose 650 MG; Start 08/28/17 at 06:00 Zolpidem Tartrate (Ambien) 5 mg QHS PRN PO SLEEP; Start 08/28/17 at 06:00 Pantoprazole (Protonix Tab) 40 mg DAILY@06 PO Last administered on 09/02/17 05 :35; Admin Dose 40 MG; Start 08/28/17 at 06:00 Aspirin (Aspirin) 81 mg DAILY PO Last administered on 09/02/17 09:46; Admin Dose 81 MG; Start 08/30/17 at 09:00 Morphine Sulfate (morphine) 2 mg Q2H PRN IV PAIN LEVEL 4-6; Start 08/28/17 at 10:30 Atorvastatin Calcium (Lipitor) 20 mg HS PO Last administered on 09/01/17 20:32 ; Admin Dose 20 MG; Start 08/28/17 at 21:00 Nitroglycerin (Nitroglycerin (Sl Tab) 0.4 Mg) 0.4 tab [id number] PRN SL CHEST PAIN; Start 08/28/17 at 19:30 Amlodipine Besylate (Norvasc) 2.5 mg DAILY PO Last administered on 09/02/17 09 :47; Admin Dose 2.5 MG; Start 08/29/17 at 09:00 Isosorbide Dinitrate (Isordil) 5 mg TID PO Last administered on 09/02/17 13:55 ; Admin Dose 5 MG; Start 08/29/17 at 09:00 RHIANNA HALL Sep 02, 2017 14:51
[2017-09-02] MEDS: ATORVASTATIN 20 MG TAB PO SCH (20:52)
[2017-09-03] VITALS (12 sets, daily range): BP systolic 103–139; BP diastolic 58–73; PULSE 51–63; RESP 16–20
[2017-09-03] MEDS: PANTOPRAZOLE (EC) 40 MG TAB PO SCH (06:08)
[2017-09-03] MEDS: ISOSORBIDE DINITRATE 5 MG TAB PO SCH ×3 (08:58→20:15)
[2017-09-03] MEDS: AMLODIPINE 2.5 MG TAB PO SCH (08:58)
[2017-09-03] MEDS: ASPIRIN 81 MG TAB PO SCH (08:58)
--- NOTE | 2017-09-03 14:14 | PN ---
Date/Time of Note Date/Time of Note DATE: 09/03/17 TIME: 14:14 Assessment/Plan VTE Prophylaxis VTE Prophylaxis Intervention: ambulation Lines/Catheters IV [facility]ter Type (from [facility] Saline Lock Urinary Cath still in place: No Assessment/Plan Chief Complaint/Hosp Course 1. Patient has a positive troponin, no overnight events 2. rule out underlying connective tissue disorder. 3. Rule out pericarditis. 4. History of CARRIE positive and history of rheumatoid factor positive. Problems: Assessment/Plan 1. Can have shower 2. waiting for results Subjective 24 Hr Interval Summary Constitutional: improved, no complaints Exam/Review of Systems Vital Signs Vitals Vital Signs Date Time Temp Pulse Resp B/P Pulse Ox O2 Delivery O2 Flow Rate FiO2 09/03/17 12:21 59 09/03/17 12:08 98.2 16 139/73 99 08/31/17 18:20 Room Air Intake and Output 09/02/17 09/02/17 09/03/17 15:00 23:00 07:00 Intake Total 900 ml 500 ml Balance 900 ml 500 ml Exam Constitutional: alert, oriented Respiratory: clear to auscultation Cardiovascular: regular rate and rhythm Results Result Diagram: 08/31/17 0824 Medications Medications Current Medications Ondansetron HCl (Zofran Inj) 4 mg Q6H PRN IV NAUSEA AND/OR VOMITING; Start at 06:00 Acetaminophen (Tylenol Tab) 650 mg Q6H PRN PO PAIN LEVEL 1-3 OR FEVER Last administered on 08/30/17 15:09; Admin Dose 650 MG; Start 08/28/17 at 06:00 Zolpidem Tartrate (Ambien) 5 mg QHS PRN PO SLEEP; Start 08/28/17 at 06:00 Pantoprazole (Protonix Tab) 40 mg DAILY@06 PO Last administered on 09/03/17 06 :08; Admin Dose 40 MG; Start 08/28/17 at 06:00 Aspirin (Aspirin) 81 mg DAILY PO Last administered on 09/03/17 08:58; Admin Dose 81 MG; Start 08/30/17 at 09:00 Morphine Sulfate (morphine) 2 mg Q2H PRN IV PAIN LEVEL 4-6; Start 08/28/17 at 10:30 Atorvastatin Calcium (Lipitor) 20 mg HS PO Last administered on 09/02/17 20:52 ; Admin Dose 20 MG; Start 08/28/17 at 21:00 Nitroglycerin (Nitroglycerin (Sl Tab) 0.4 Mg) 0.4 tab [id number] PRN SL CHEST PAIN; Start 08/28/17 at 19:30 Amlodipine Besylate (Norvasc) 2.5 mg DAILY PO Last administered on 09/03/17 08 :58; Admin Dose 2.5 MG; Start 08/29/17 at 09:00 Isosorbide Dinitrate (Isordil) 5 mg TID PO Last administered on 09/03/17 08:58 ; Admin Dose 5 MG; Start 08/29/17 at 09:00 HEAVEN RAMSEY Sep 03, 2017 14:14
--- NOTE | 2017-09-03 14:35 | CONS ---
Date/Time of Note Date/Time of Note DATE: 09/03/17 TIME: 14:34 Assessment/Plan Assessment/Plan Chief Complaint/Hosp Course IMPRESSION: 1. Positive troponin in the setting of a patient that is thought to have severe vasospastic disease, which definitely could cause positive troponins in the setting of severe vasospasm-no sig uptrend. Lexiscan this admit negative for ischemia with NL EF. 2. Chest pain. 3. Vasospastic angina per history. 4. Dyslipidemia, on statin. 5. Bradycardia.with satble BP 6. Abnormal electrocardiogram with inferior and lateral T-wave abnormalities. 7. Thrombocytopenia-slowly improving Recc: -Tele -serial ecg's -Continue isordil -Continue asa as tolerated only given low platelets -Continue norvasc as tolerated only to prevent recurrent vasospasm -ongoing evaluation of thrombocytopenia/heme following awaiting final path on BM Bx -OK for d/c planning from cardiac standdpoint Problems: Consultation Date/Type/Reason Admit Date/Time Aug 28, 2017 at 05:43 Initial Consult Date 08/30/17 Type of Consultation: cardiology Reason for Consultation positive troponin Referring Provider: OPAL SLAUGHTER MD Exam/Review of Systems Vital Signs Vitals Vital Signs Date Time Temp Pulse Resp B/P Pulse Ox O2 Delivery O2 Flow Rate FiO2 09/03/17 12:21 59 09/03/17 12:08 98.2 16 139/73 99 08/31/17 18:20 Room Air Intake and Output 09/02/17 09/02/17 09/03/17 15:00 23:00 07:00 Intake Total 900 ml 500 ml Balance 900 ml 500 ml Exam Review of Systems: CONSTITUTIONAL: No fevers, chills. PULMONARY: No sob CARDIOVASCULAR: No chest pain/palpitations GASTROINTESTINAL: No nausea/vomiting. GENITOURINARY: No hematuria/dysuria. MUSCULOSKELETAL: No myagias/arthalgias. PSYCHIATRIC: The patient denies depression. NEUROLOGIC: No weakness Constitutional: alert, oriented Psych: no complaints Head: normocephalic ENMT: mucosa pink and moist Neck: jvd (8 cm water), supple Respiratory: clear to auscultation Cardiovascular: regular rate and rhythm Gastrointestinal: non-tender, soft Musculoskeletal: muscle tone (normal) Extremities: edema (none) Neurological: other (No focal deficits) Results Result Diagram: 08/31/17 0824 Medications Medications Current Medications Ondansetron HCl (Zofran Inj) 4 mg Q6H PRN IV NAUSEA AND/OR VOMITING; Start at 06:00 Acetaminophen (Tylenol Tab) 650 mg Q6H PRN PO PAIN LEVEL 1-3 OR FEVER Last administered on 08/30/17 15:09; Admin Dose 650 MG; Start 08/28/17 at 06:00 Zolpidem Tartrate (Ambien) 5 mg QHS PRN PO SLEEP; Start 08/28/17 at 06:00 Pantoprazole (Protonix Tab) 40 mg DAILY@06 PO Last administered on 09/03/17 06 :08; Admin Dose 40 MG; Start 08/28/17 at 06:00 Aspirin (Aspirin) 81 mg DAILY PO Last administered on 09/03/17 08:58; Admin Dose 81 MG; Start 08/30/17 at 09:00 Morphine Sulfate (morphine) 2 mg Q2H PRN IV PAIN LEVEL 4-6; Start 08/28/17 at 10:30 Atorvastatin Calcium (Lipitor) 20 mg HS PO Last administered on 09/02/17 20:52 ; Admin Dose 20 MG; Start 08/28/17 at 21:00 Nitroglycerin (Nitroglycerin (Sl Tab) 0.4 Mg) 0.4 tab [id number] PRN SL CHEST PAIN; Start 08/28/17 at 19:30 Amlodipine Besylate (Norvasc) 2.5 mg DAILY PO Last administered on 09/03/17 08 :58; Admin Dose 2.5 MG; Start 08/29/17 at 09:00 Isosorbide Dinitrate (Isordil) 5 mg TID PO Last administered on 09/03/17 08:58 ; Admin Dose 5 MG; Start 08/29/17 at 09:00 RHIANNA HALL Sep 03, 2017 14:35
[2017-09-03] MEDS: ATORVASTATIN 20 MG TAB PO SCH (20:15)
[2017-09-04] VITALS (9 sets, daily range): BP systolic 98–113; BP diastolic 52–64; PULSE 47–71; RESP 17–20
[2017-09-04] MEDS: PANTOPRAZOLE (EC) 40 MG TAB PO SCH (05:48)
[2017-09-04] MEDS: AMLODIPINE 2.5 MG TAB PO SCH (09:00)
[2017-09-04] MEDS: ASPIRIN 81 MG TAB PO SCH (09:37)
[2017-09-04] MEDS: ISOSORBIDE DINITRATE 5 MG TAB PO SCH ×2 (09:37→13:12)
--- NOTE | 2017-09-04 13:29 | CONS ---
Date/Time of Note Date/Time of Note DATE: 09/04/17 TIME: 13:28 Assessment/Plan Assessment/Plan Chief Complaint/Hosp Course IMPRESSION: 1. Positive troponin in the setting of a patient that is thought to have severe vasospastic disease, which definitely could cause positive troponins in the setting of severe vasospasm-no sig uptrend. Lexiscan this admit negative for ischemia with NL EF. 2. Chest pain. 3. Vasospastic angina per history. 4. Dyslipidemia, on statin. 5. Bradycardia.with satble BP 6. Abnormal electrocardiogram with inferior and lateral T-wave abnormalities. 7. Thrombocytopenia-slowly improving Recc: -Tele -serial ecg's -Continue isordil -Continue asa as tolerated only given low platelets -Continue norvasc as tolerated only to prevent recurrent vasospasm -ongoing evaluation of thrombocytopenia/heme following awaiting final path on BM Bx -OK for d/c planning from cardiac standdpoint Problems: Consultation Date/Type/Reason Admit Date/Time Aug 28, 2017 at 05:43 Initial Consult Date 08/30/17 Type of Consultation: cardiology Reason for Consultation chest pain Referring Provider: OPAL SLAUGHTER MD Exam/Review of Systems Vital Signs Vitals Vital Signs Date Time Temp Pulse Resp B/P Pulse Ox O2 Delivery O2 Flow Rate FiO2 09/04/17 12:00 71 09/04/17 11:41 98.2 19 113/64 99 08/31/17 18:20 Room Air Exam Review of Systems: CONSTITUTIONAL: No fevers, chills. PULMONARY: No sob CARDIOVASCULAR: No chest pain/palpitations GASTROINTESTINAL: No nausea/vomiting. GENITOURINARY: No hematuria/dysuria. MUSCULOSKELETAL: No myagias/arthalgias. PSYCHIATRIC: The patient denies depression. NEUROLOGIC: No weakness Constitutional: alert, oriented Psych: no complaints Head: normocephalic ENMT: mucosa pink and moist Neck: jvd (8 cm wter), supple Respiratory: clear to auscultation Cardiovascular: regular rate and rhythm Gastrointestinal: non-tender, soft Musculoskeletal: muscle tone (normal) Extremities: edema (none) Neurological: other (No focal deficits) Results Result Diagram: 08/31/17 0824 Medications Medications Current Medications Ondansetron HCl (Zofran Inj) 4 mg Q6H PRN IV NAUSEA AND/OR VOMITING; Start at 06:00 Acetaminophen (Tylenol Tab) 650 mg Q6H PRN PO PAIN LEVEL 1-3 OR FEVER Last administered on 08/30/17 15:09; Admin Dose 650 MG; Start 08/28/17 at 06:00 Zolpidem Tartrate (Ambien) 5 mg QHS PRN PO SLEEP; Start 08/28/17 at 06:00 Pantoprazole (Protonix Tab) 40 mg DAILY@06 PO Last administered on 09/04/17 05 :48; Admin Dose 40 MG; Start 08/28/17 at 06:00 Aspirin (Aspirin) 81 mg DAILY PO Last administered on 09/04/17 09:37; Admin Dose 81 MG; Start 08/30/17 at 09:00 Morphine Sulfate (morphine) 2 mg Q2H PRN IV PAIN LEVEL 4-6; Start 08/28/17 at 10:30 Atorvastatin Calcium (Lipitor) 20 mg HS PO Last administered on 09/03/17 20:15 ; Admin Dose 20 MG; Start 08/28/17 at 21:00 Nitroglycerin (Nitroglycerin (Sl Tab) 0.4 Mg) 0.4 tab [id number] PRN SL CHEST PAIN; Start 08/28/17 at 19:30 Amlodipine Besylate (Norvasc) 2.5 mg DAILY PO Last administered on 09/03/17 08 :58; Admin Dose 2.5 MG; Start 08/29/17 at 09:00 Isosorbide Dinitrate (Isordil) 5 mg TID PO Last administered on 09/04/17 13:12 ; Admin Dose 5 MG; Start 08/29/17 at 09:00 RHIANNA HALL Sep 04, 2017 13:29
--- NOTE | 2017-09-04 13:38 | CONS ---
Date/Time of Note Date/Time of Note DATE: 09/04/17 TIME: 13:36 Consult Date/Type/Reason Admit Date/Time Aug 28, 2017 at 05:43 Initial Consult Date 08/30/17 Type of Consultation: Rheumatology Ordering Provider: OPAL SLAUGHTER MD Subjective Remains pain-free Objective Vital Signs Date Time Temp Pulse Resp B/P Pulse Ox O2 Delivery O2 Flow Rate FiO2 09/04/17 12:00 71 09/04/17 11:41 98.2 19 113/64 99 08/31/17 18:20 Room Air Exam GENERAL: Alert and oriented, pleasant female in no acute distress. HEENT: NCAT. Extraocular movements intact. Oropharynx is clear. No oral ulcers, no malar rash. CARDIOVASCULAR: S1, S2, regular rate and rhythm. CHEST: Clear to auscultation bilaterally. ABDOMEN: Soft, nontender, nondistended. Bowel sounds present. NEUROLOGIC: Nonfocal. SKIN: No rashes. MUSCULOSKELETAL: Extremities can range all joints fully, no joint effusion, no tenderness at the joints currently. Results/Medications Result Diagram: 08/31/17 0824 Medications Current Medications Ondansetron HCl (Zofran Inj) 4 mg Q6H PRN IV NAUSEA AND/OR VOMITING; Start at 06:00 Acetaminophen (Tylenol Tab) 650 mg Q6H PRN PO PAIN LEVEL 1-3 OR FEVER Last administered on 08/30/17 15:09; Admin Dose 650 MG; Start 08/28/17 at 06:00 Zolpidem Tartrate (Ambien) 5 mg QHS PRN PO SLEEP; Start 08/28/17 at 06:00 Pantoprazole (Protonix Tab) 40 mg DAILY@06 PO Last administered on 09/04/17 05 :48; Admin Dose 40 MG; Start 08/28/17 at 06:00 Aspirin (Aspirin) 81 mg DAILY PO Last administered on 09/04/17 09:37; Admin Dose 81 MG; Start 08/30/17 at 09:00 Morphine Sulfate (morphine) 2 mg Q2H PRN IV PAIN LEVEL 4-6; Start 08/28/17 at 10:30 Atorvastatin Calcium (Lipitor) 20 mg HS PO Last administered on 09/03/17 20:15 ; Admin Dose 20 MG; Start 08/28/17 at 21:00 Nitroglycerin (Nitroglycerin (Sl Tab) 0.4 Mg) 0.4 tab [id number] PRN SL CHEST PAIN; Start 08/28/17 at 19:30 Amlodipine Besylate (Norvasc) 2.5 mg DAILY PO Last administered on 09/03/17 08 :58; Admin Dose 2.5 MG; Start 08/29/17 at 09:00 Isosorbide Dinitrate (Isordil) 5 mg TID PO Last administered on 09/04/17 13:12 ; Admin Dose 5 MG; Start 08/29/17 at 09:00 Assessment/Plan Chief Complaint/Hosp Course 1. The patient is a 37-year-old female with a second presentation of chest pain that appears to be non-cardiac in terms of cardiovascular disease. She was found to have a positive CARRIE, positive rheumatoid factor. Of note, she is also found to be anemic and thrombocytopenia which is the most objective concerning finding. Other than the above, she really does not have any other signs or symptoms of lupus or an autoimmune condition; however, given the severity of her thrombocytopenia and her anemia, I agree with the workup as it has been done. Blood work is negative for vasculitis. 2. Thrombocytopenia. I agree with a bone marrow biopsy and need to rule out any kind of malignant process given her young age. We will continue to follow the patient awaiting the above-mentioned test results and possibly consider starting a steroid; however, there is no fitzgerald to treat her at this point. Other than her thrombocytopenia and mild anemia, she is asymptomatic. I would like to thank Dr. Slaughter for having me participate in this patient's care. Please do not hesitate to call with any questions or concerns. Problems: DANIA YANEZ MD Sep 04, 2017 13:38
--- NOTE | 2017-09-04 16:30 | CONS ---
Date/Time of Note Date/Time of Note DATE: 09/04/17 TIME: 16:28 Assessment/Plan Assessment/Plan Chief Complaint/Hosp Course 37 yo wtih #Chest pain #Leukocytosis #Thrombcytopenia #Rheumatoid Arthritis -Bone Marrow bx is negative for leukemia or MDS. Still JAK2 , BCR ABL are still pending to definitely rule out CML or Myeloproliferative disorder although my suspicion for either of these disease is low -patient's platelets have improved. -appreciate recs by rheumatology to evaluate for underlying rheumatologic disorder. at this time, there is no indication to immediately start treatment. -Chest pain is likely secondary to vasospasm. Continue recommendations per cardiology including aspirin and statin A total of 40 minutes of face to face time was spent speaking with the patient, of which greater than 50% was spent in counseling and coordination of care and the detailed question and answer session. Problems: Consultation Date/Type/Reason Admit Date/Time Aug 28, 2017 at 05:43 Initial Consult Date 08/30/17 Type of Consultation: Hematology Reason for Consultation pancytopenia Referring Provider: OPAL SLAUGHTER MD 24 HR Interval Summary Free Text/Dictation pt feeling well Exam/Review of Systems Vital Signs Vitals Vital Signs Date Time Temp Pulse Resp B/P Pulse Ox O2 Delivery O2 Flow Rate FiO2 09/04/17 15:46 98.5 76 17 112/62 98 08/31/17 18:20 Room Air Exam Constitutional: alert, oriented Psych: no complaints Head: normocephalic Eyes: nl conjunctiva ENMT: nl external ears & nose Neck: non-tender, supple Respiratory: clear to auscultation Cardiovascular: nl pulses, regular rate and rhythm Gastrointestinal: soft Musculoskeletal: nl extremities to inspection, nl gait and stance Results Result Diagram: 08/31/17 0824 Medications Medications Current Medications Ondansetron HCl (Zofran Inj) 4 mg Q6H PRN IV NAUSEA AND/OR VOMITING; Start at 06:00 Acetaminophen (Tylenol Tab) 650 mg Q6H PRN PO PAIN LEVEL 1-3 OR FEVER Last administered on 08/30/17t 15:09; Admin Dose 650 MG; Start 08/28/17 at 06:00 Zolpidem Tartrate (Ambien) 5 mg QHS PRN PO SLEEP; Start 08/28/17 at 06:00 Pantoprazole (Protonix Tab) 40 mg DAILY@06 PO Last administered on 09/04/17 05 :48; Admin Dose 40 MG; Start 08/28/17 at 06:00 Aspirin (Aspirin) 81 mg DAILY PO Last administered on 09/04/17 09:37; Admin Dose 81 MG; Start 08/30/17 at 09:00 Morphine Sulfate (morphine) 2 mg Q2H PRN IV PAIN LEVEL 4-6; Start 08/28/17 at 10:30 Atorvastatin Calcium (Lipitor) 20 mg HS PO Last administered on 09/03/17 20:15 ; Admin Dose 20 MG; Start 08/28/17 at 21:00 Nitroglycerin (Nitroglycerin (Sl Tab) 0.4 Mg) 0.4 tab [id number] PRN SL CHEST PAIN; Start 08/28/17 at 19:30 Amlodipine Besylate (Norvasc) 2.5 mg DAILY PO Last administered on 09/03/17 08 :58; Admin Dose 2.5 MG; Start 08/29/17 at 09:00 Isosorbide Dinitrate (Isordil) 5 mg TID PO Last administered on 09/04/17 13:12 ; Admin Dose 5 MG; Start 08/29/17 at 09:00 JAMAAL LINDSEY M.D. Sep 04, 2017 16:30
--- NOTE | 2017-09-04 16:35 | PDOCDIS ---
Discharge Instructions CONDITION Patient Condition: Stable HOME CARE INSTRUCTIONS: Special Diet: cardiac ACTIVITY: Activity Restrictions: Slowly Increase Activity FOLLOW UP/APPOINTMENTS Follow-up Plan f/u own pcp [address] santiago 1 wk see own millinery worker [address] bo 1 wk OPAL SLAUGHTER MD Sep 04, 2017 16:35
[2017-09-04] MEDS ORDERED: AMLO2.5T78 PO (16:37)
[2017-09-04] MEDS ORDERED: NITR0.4T32 SL (16:37)
[2017-09-04] MEDS ORDERED: MED4DP PO (16:37)
[2017-09-04] MEDS ORDERED: PANT40TA4 PO (16:37)
[2017-09-04] MEDS ORDERED: ASPI81TA3 PO (16:37)
--- NOTE | 2017-09-07 18:31 | QN ---
Documentation Comment [id number] OPAL SLAUGHTER MD Sep 07, 2017 18:31
--- NOTE | 2017-09-08 06:55 | DS ---
DATE OF ADMISSION: 08/28/2017 DATE OF DISCHARGE: 09/04/2017 The patient was admitted with chest pain and a positive troponin. The patient was seen by Dr. bo in consultation, underwent a Lexiscan. The patient's Lexiscan was negative. The patient also had a bone marrow biopsy done due to anemia/thrombocytopenia. The patient was seen by Dr. norman from rheumatology and Dr. Marisol Pearce from hematology. The patient's bone marrow biopsy came back negative for malignancy, but the patient was positive for anemia and rheumatoid arthritis that was positive. The patient was started on prednisone tapering dose and will further follow up as an outpatient by the patient's own family handle attacher. DISCHARGE DIAGNOSIS: 1. Chest pain with positive troponin. 2. Leukocytosis. 3. Thrombocytopenia. 4. Rheumatoid arthritis, factor positive. The patient _had a bone marrow biopsy. 5. Anemia. 6. Positive troponin. DISCHARGE MEDICATIONS: To continue on amlodipine, aspirin, methylprednisolone, Protonix, nitro, isosorbide, ibuprofen, atorvastatin. The patient is to follow up in the office with PCP, Dr. Rivera, and the patient' s own handle attacher. Dictated By: OPAL SLAUGHTER MD BS/NTS Conf#: [id number] DID#: [id number] CC: LIBAN RIVERA;*EndCC* MTDD
== END 2017-09-04 18:04 | disposition home or self-care (01) | DRG 311 ==
LOC: E/R 03:40 → MS4 05:43
PROVIDERS: ADMIT Internal Medicine; ATTEND Internal Medicine
PROC: C22G1ZZ Tomographic (Tomo) Nuclear Medicine Imaging of Myocardium using Technetium 99m (Tc-99m) (ICD-10-PCS; 2017-08-29)
PROC: 4A02XM4 Measurement of Cardiac Total Activity, External Approach (ICD-10-PCS; 2017-08-29)
PROC: 3E033HZ Introduction of Radioactive Substance into Peripheral Vein, Percutaneous Approach (ICD-10-PCS; 2017-08-29)
PROC: 07DR3ZX Extraction of Iliac Bone Marrow, Percutaneous Approach, Diagnostic (ICD-10-PCS; principal; 2017-08-31)
DX: I20.1 Angina pectoris with documented spasm (principal); D69.6 Thrombocytopenia, unspecified; R00.1 Bradycardia, unspecified; E78.5 Hyperlipidemia, unspecified; E66.9 Obesity, unspecified; Z68.28 Body mass index [BMI] 28.0-28.9, adult; M06.9 Rheumatoid arthritis, unspecified; D64.9 Anemia, unspecified; F17.210 Nicotine dependence, cigarettes, uncomplicated; R79.89 Other specified abnormal findings of blood chemistry
CPT/HCPCS: 36415; 71010; 77012; 78452; 80053; 80061; 81001; 81003; 82550; 82553; 82570; 83690; 84484; 85025; 85610; 85651; 85730; 86021; 86038; 86140; 86160; 86200; 86226; 86235; 86430; 86703; 86704; 86709; 86803; 86850; 86900; 86901; 87340; 88305; 88311; 88313; 93005; 93017; 93306; 96374; 96375; A9500; A9505; J1170; J1650; J1885; J2060; J2250; J2405; J2785; J3010

== ENCOUNTER 2018-01-23 21:45 | Observation (INO) | END 2018-01-26 15:19 | disposition home or self-care (01) ==

== ENCOUNTER 2018-01-26 15:58 | Emergency (ER) | END 2018-01-26 17:11 | disposition home or self-care (01) ==

== ENCOUNTER 2018-02-26 10:36 | Inpatient (IN) | END 2018-02-26 15:50 | disposition home or self-care (01) | DRG 311 ==

== ENCOUNTER 2018-03-26 19:14 | Emergency (ER) | END 2018-03-26 23:20 | disposition home or self-care (01) ==

== ENCOUNTER 2018-05-07 06:47 | Day surgery (SDC) | END 2018-05-07 12:15 | disposition home or self-care (01) ==

== ENCOUNTER 2018-06-08 13:54 | Emergency (ER) | END 2018-06-08 17:20 | disposition home or self-care (01) ==

== ENCOUNTER 2018-09-02 17:09 | Observation (INO) | END 2018-09-04 18:30 | disposition home or self-care (01) ==